=== PATIENT | male | born 1955 | race Caucasian/White ===

== ENCOUNTER 2020-05-30 20:19 | Inpatient (IN) ==
[2020-05-30 20:44] VITALS: BMI 23.5
--- NOTE | 2020-05-30 20:53 | DR.GENAD ---
HPI Time Seen Time Seen by Provider: 05/30/20 20:50 PCP Primary Care Physician: NOEMI HPI Comment HPI Comment: PATIENT IS 65YR OLD MALE IN THE NURSING WITH CEREBRAL PALSY HAD CHEST XRAY DONE TODAY FOR COUGH AND SOB. CONCERN FOR FREE AIR EXPRESSED BY R ADIOLOGIST. PATIENT IN ER FOR FURTHER EVALUATION AND ABD/PELVIS CT RECOMMENDED. PATIENT IS BED BOUNG BUT ANSWERING QUESTIONS. DENIES FEVER, ABDOMINAL PAIN OR CHEST PAIN. ABDOMEN IS DISTENDED WITH INTACT BOWEL SOUNDS. NO NAUSEA OR VOMITING. NO DIARRHEA. Complaint/Symptoms Chief Complaint Doctors Comments: COUGHING SPELL AND SOB AT THE [facility] TODAY. Chief Complaint:: PATIENT HAD COUGHING EPISODE TODAY AND SHORTNESS OF BREATH - SENT OVER FOR ABNORMAL CXR; PT DENIES ANY PAIN OR COMPLAINTS Self Treatment fo Chief Complaint: 2L NC PLACED AT [facility] COVID-19 Coronavirus risk:travel/contact w/high risk person: No Has patient experienced Coronavirus symptoms: Yes Coronavirus symptoms experienced: Coughing and Shortness of Breath Nurses notes reviewed Nurses Notes Review: Yes Source History Provided: Patient and Longterm Mode of Arrival Mode of Arrival: Stretcher Timing Onset of Chief Complaint: 05/30/20 Came on: Suddenly Duration Duration: Constant Duration: Hours Severity Severity: Moderate Modifying Factors Worsens:: COUGHING Improves:: LYING STILL. Associated Signs and Symptoms Associated Signs and Symptoms: SOB, COUGH. Other History Other History: HISTORY CEREBRAL PALSY. PMH PMH Past Medical History: Yes Past Medical History: Anemia, Anxiety, Depression, GERD and Seizures Past Medical History Comment: CEREBRAL PALSY; Past Surgical History: Yes Surgical History: Ortho Surgery Family History History of Family Medical Conditions: Yes Family Medical History: Diabetes Mellitus, Cancer, [place] and Hypertension Social History Does any household member use tobacco: No Alcohol Use: None Do you use any recreational Drugs:: No Lives With: Other Travel Risk Coronavirus risk:travel/contact w/high risk person: No Has patient experienced Coronavirus symptoms: Yes Coronavirus symptoms experienced: Coughing and Shortness of Breath Infectious screening Have you traveled outside the country in the last 6 months?: No Isolation: Droplet ROS Review of Systems Constitutional: See HPI, Fever, Weakness and Fatigue Eyes: No Symptoms Reported, See HPI and Other (MACULAR DEGERATION.) ENTM: See HPI, Nose Discharge and Nose Congestion; negative Ear Pain and Throat Pain Respiratoy: See HPI, Moist Cough and Short of Breath; negative Wheezing Cardiovascular: No Symptoms Reported, See HPI, Chest Pain (TIGHTNESS.) and Edema; negative Palpitations Gastrointestinal/Abdominal: See HPI, Abdominal Pain (ABDOMINAL DISTENSION.) and Constipation; negative Diarrhea, Nausea and Vomiting Genitourinary: No Symptoms Reported and See HPI; negative Hematuria Neurological: No Symptoms Reported, See HPI, Pre-existing Deficit (CERERAL PALSY.), Weakness and Problems Walking Musculoskeletal: No Symptoms Reported, See HPI, Back Pain and Muscle Pain Integumentary: See HPI and Change in Color; negative Rash Hematologic/Lymphatic: See HPI and Easy Bruising; negative Swollen Glands Endocrine: No Symptoms Reported and See HPI; negative Decreased Appetite Psychiatric: See HPI and Depression All Other Systems: Reviewed and Negative PE Vital Signs Vitals: Temperature 97.8 F Pulse Rate 89 Respiratory Rate 34 Blood Pressure [Right Arm] 120/80 Blood Pressure [Left Arm] 119/54 Blood Pressure 158/70 O2 Sat by Pulse Oximetry 100 General Limitations: Other (CEREBRAL PALSY.) General Appearance: Alert and In Distress (ON EXERTION.) Eyes Eye exam: Other (RIGHT EYE); negative Scleral Icterus and Conjunctival Injection ENT ENT Exam: Normal Exam, Normal Oropharynx, Normal External Ear Exam and TM's Normal Bilaterally External Ear Exam: Normal External Inspection; negative Mastoid Tenderness TM/Canal Exam: Bilateral: Normal Nose Exam: Normal Nose Exam; negative Sinus Tenderness Mouth Exam: Normal Inspection; negative Lip Swelling and Tongue Swelling Throat Exam: Normal Inspection, Tonsillar Erythema and Tonsillomegaly Neck Neck Exam: Normal Inspection; negative Trachea Midline and Tenderness Chest Chest Inspection: Normal Inspection and Symmetric Chest Wall Rise Respiratory Respiratory Exam: Normal Lung Sounds Bilat and Respiratory Distress; negative Accessory Muscle Use and Chest Wall Tenderness Respiratory Exam: Bilateral: Rhonchi Cardiovascular Cardiovascular Exam: Regular Rate, Normal Rhythm, Normal Heart Sounds, Systolic Murmur and Diastolic Murmur Abdominal Exam Abdominal Exam: Normal Inspection, Normal Bowel Sounds, Soft and Tenderness Abdominal Tenderness: Diffuse and Mild Extremities Extremities Exam: Normal Inspection and Edema; negative Calf Tenderness Back Back Exam: Normal Inspection and Other (CEREBRAL PALSY WITH PARALYSIS.) Neurologic Neurological Exam: Alert, Oriented X3 and Motor Sensory Deficit (CEREBRAL PALSY.) Psychiatric Psychiatric Exam: Normal Affect and Normal Mood Skin Skin Exam: Dry MDM Additional Information Additional Information Obtained From: Old Records Differential Diagnosis Differential Diagnosis: PNEUMONIA, BRONCHITIS, UTI, BOWEL OBST, BOWEL DISTENSION, BOWEL PERFORATION COURSE Treatment Treatment: SEE ORDERS. ZOSYN 3.375MG IVPB IN ER AND NS 50CC/HR IN ER. Consultation Consultation Comments: DISCUSSED PATIENT WITH DR. HUNTER. HE WILL ADMIT PATIENT. Education/Counseling Education/Counseling: Patient Educated On: Diagnosis ROR Labs Reviewed Laboratory Results Reviewed?: Yes Result Diagrams: 05/30/20 22:06 05/30/20 22:06 Laboratory: WBC 7.8 X10^3/uL (3.6-10.0) 05/30/20 22:06 RBC 4.00 X10^6/uL (4.7-6.0) L 05/30/20 22:06 Hgb 11.2 g/dL (13.5-18.0) L 05/30/20 22:06 Hct 33.1 % (42.0-54.0) L 05/30/20 22:06 MCV 82.7 fL (80.0-100.0) 05/30/20 22:06 MCH 28.0 pg (27.0-34.0) 05/30/20 22:06 MCHC 33.8 g/dL (33.0-35.0) 05/30/20 22:06 RDW 15.3 % (11.6-16.5) 05/30/20 22:06 Plt Count 181 X10^3/uL (150.0-450.0) 05/30/20 22:06 MPV 8.2 fL (7.4-11.0) 05/30/20 22:06 Neut % (Auto) 65.7 % (42.0-75.0) 05/30/20 22:06 Lymph % (Auto) 21.6 % (21.0-51.0) 05/30/20 22:06 [facility] % (Auto) 8.6 % (0.0-13.0) 05/30/20 22:06 Eos % (Auto) 3.8 % (0.9-2.9) H 05/30/20 22:06 Baso % (Auto) 0.3 % (0.2-1.0) 05/30/20 22:06 Neut # (Auto) 5.1 x10^3/uL (2.2-4.8) H 05/30/20 22:06 Lymph # (Auto) 1.7 X10^3/uL (1.3-2.9) 05/30/20 22:06 [facility] # (Auto) 0.7 x10^3/uL (0.3-0.8) 05/30/20 22:06 Eos # (Auto) 0.3 x10^3/uL (0.0-0.2) H 05/30/20 22:06 Baso # (Auto) 0.0 X10^3/uL (0.0-0.1) 05/30/20 22:06 Absolute Nucleated RBC 0.0 /100WBC 05/30/20 22:06 Sodium 138 mmol/L (136-145) 05/30/20 22:06 Corrected Sodium TNP 05/30/20 22:06 Potassium 3.7 mmol/L (3.5-5.1) 05/30/20 22:06 Chloride 101 mmol/L (98-107) 05/30/20 22:06 Carbon Dioxide 33.9 mmol/L (21-32) H 05/30/20 22:06 BUN 18 mg/dL (7-18) 05/30/20 22:06 Creatinine 0.61 mg/dL (0.70-1.30) L 05/30/20 22:06 Est GFR (MDRD) Af Amer > 60 (>60) 05/30/20 22:06 Est GFR (MDRD) Non-Af > 60 (>60) 05/30/20 22:06 Glucose 106 mg/dL (65-99) H 05/30/20 22:06 Calcium 8.5 mg/dL (8.5-10.1) 05/30/20 22:06 Corrected Calcium 9.4 mg/dL (8.5-10.1) 05/30/20 22:06 Total Bilirubin 0.20 mg/dL (0.2-1.0) 05/30/20 22:06 AST 12 Units/L (15-37) L 05/30/20 22:06 ALT 15 Units/L (12-78) 05/30/20 22:06 Alkaline Phosphatase 88 Units/L (46-116) 05/30/20 22:06 Total Protein 6.6 g/dL (6.4-8.2) 05/30/20 22:06 Albumin 2.9 g/dL (3.4-5.0) L 05/30/20 22:06 Globulin 3.7 g/dL (2.5-4.5) 05/30/20 22:06 Albumin/Globulin Ratio 0.8 Ratio (1.1-2.1) L 05/30/20 22:06 Amylase 86 Units/L (25-115) 05/30/20 22:06 Lipase 214 Units/L (73-393) 05/30/20 22:06 XRAY XRAY Interpreted by: Radiologist (REPORT NOTED AND DISCUSSED WITH PATIENT.) and Self Opioid Opioid Risk Tool Age (Say box if 16-45): No History of Preadolescent Sexual Abuse: No Total: 0 Total Score Risk Category: Low Risk Copyright: [facility] predicting aberrant behaviors Diagnosis Discharge Problem: SOB (shortness of breath), Large hiatal hernia Pneumonia Qualifiers: Pneumonia type: due to unspecified organism Laterality: bilateral Lung location: lower lobe of lung Qualified Code(s): J18.9 - Pneumonia, unspecified organism Instructions Forms: Precautions for COVID19 Patient Portal Social Distancing
--- NOTE | 2020-05-30 21:20 | CT ---
HISTORYPOSSIBLE BOWEL PERFORATION- ABN CXR 05/30STUDYABDOMEN/PELVIS W/O CONCOMPARISONChest radiograph 05/30/2020TECHNIQUEMultiple axial images of the abdomen and pelvis were obtained from the lung bases to the pubic symphysis without IV contrast. Coronal and sagittal reformats obtained. Dose reduction techniques including Automated Exposure Control (AEC) and adjustment of mA and kV were utilized.FINDINGSLack of intravenous contrast compromises evaluation of solid organs and vasculature.Thoracic: Large hiatal hernia containing the entire stomach, which is moderately distended with air-fluid level. Left basilar atelectasis versus consolidation.Hepatobiliary: Multiple low-density lesions of the right hepatic lobe, too small to be characterized. The gallbladder is unremarkable.Pancreas: No abnormality identified in the pancreas.Spleen: No abnormality identified in the spleen.Adrenals: No abnormality identified in either adrenal glandGenitourinary: No parenchymal abnormality identified in either kidney. No hydronephrosis or nephrolithiasis. Evaluation of the bladder is limited, but no obvious bladder abnormality is present.Gastrointestinal: Significant distention of the rectosigmoid colon with large stool burden throughout. No convincing colonic wall thickening or pericolonic inflammation. No dilated small bowel loops. The appendix is not visualized. No right lower quadrant inflammatory changes..Vascular/Lymphatics: No enlarged lymph nodes by CT size criteria. Abdominal aorta is normal in caliber. Minimal atherosclerotic calcification.Peritoneum/Other: [No extraluminal air.] [No extraluminal fluid. ]MSK/Body Wall: Bones appear osteopenic. Subcentimeter sclerotic foci of the pelvis, too small to be characterized and are indeterminate. Levoscoliosis of the spine with multilevel spondylosis. Moderate joint space loss and degenerative changes of the bilateral hipsIMPRESSIONNo free air identified. Findings on the chest radiograph corresponding to air-filled right hepatic flexure interposition the liver. Significant stool retention may be correlated clinically for constipation.Large hiatal hernia containing the entire stomach, which is moderately distended containing air-fluid level, such that a mild degree of obstruction cannot be entirely excluded.Left basilar atelectasis versus consolidation.Indeterminate low-density right hepatic lobe lesions.Indeterminate sclerotic foci of the pelvis.Electronically signed by: Sarahi Matt (May 30, 2020 21:20:19)
[2020-05-30] MEDS ORDERED: ZOSYN VIAL 3.375 GRAMS 3.375 G in NS 100 ML IV + SPIKE MINIBAG* 100 ML IV ONE (21:57)
[2020-05-30] MEDS ORDERED: PROTONIX INJ 40 MG VIAL IVP ONE (21:58)
[2020-05-30] MEDS ORDERED: ZOSYN VIAL 3.375 GRAMS IV ONE (21:59)
[2020-05-30] MEDS ORDERED: NS 100 ML IV + SPIKE MINIBAG* 100 ML IV ONE (21:59)
[2020-05-30] MEDS ORDERED: NS 1000 ML 1,000 ML ONE (21:59)
[2020-05-30] MEDS: NS 1000 ML 1,000 ML IV SCH (22:08)
[2020-05-30] MEDS ORDERED: PROTONIX INJ 40 MG VIAL ONE (22:09)
[2020-05-30 22:16] LABS: BASOPHILS % (AUTO) 0.3 % (0.2-1.0); EOSINOPHILS # (AUTO) 0.3 x10^3/uL (0.0-0.2); EOSINOPHILS % (AUTO) 3.8 % (0.9-2.9); HEMATOCRIT 33.1 % (42.0-54.0); HEMOGLOBIN 11.2 g/dL (13.5-18.0); LYMPHOCYTES # (AUTO) 1.7 X10^3/uL (1.3-2.9); LYMPHOCYTES % (AUTO) 21.6 % (21.0-51.0); MEAN CORPUSCULAR HGB CONC 33.8 g/dL (33.0-35.0); MEAN CORPUSCULAR VOLUME 82.7 fL (80.0-100.0); MEAN PLATELET VOLUME 8.2 fL (7.4-11.0); MONOCYTES # (AUTO) 0.7 x10^3/uL (0.3-0.8); MONOCYTES % (AUTO) 8.6 % (0.0-13.0); NEUTROPHILS # (AUTO) 5.1 x10^3/uL (2.2-4.8); NEUTROPHILS % (AUTO) 65.7 % (42.0-75.0); PLATELET COUNT 181 X10^3/uL (150.0-450.0); RED CELL DISTRIBUTION WIDTH 15.3 % (11.6-16.5); WHITE BLOOD COUNT 7.8 X10^3/uL (3.6-10.0)
[2020-05-30 22:25] LABS: ALANINE AMINOTRANSFERASE 15 Units/L (12-78); ALBUMIN 2.9 g/dL (3.4-5.0); ALKALINE PHOSPHATASE 88 Units/L (46-116); AMYLASE 86 Units/L (25-115); ASPARTATE AMINO TRANSFERASE 12 Units/L (15-37); BLOOD UREA NITROGEN 18 mg/dL (7-18); CALCIUM 8.5 mg/dL (8.5-10.1); CARBON DIOXIDE 33.9 mmol/L (21-32); CHLORIDE 101 mmol/L (98-107); COR CA(FOR HYPOALB) 9.4 mg/dL (8.5-10.1); CREATININE 0.61 mg/dL (0.70-1.30); LIPASE 214 Units/L (73-393); SODIUM 138 mmol/L (136-145); TOTAL PROTEIN 6.6 g/dL (6.4-8.2); eGFR NON BLACK RACES > 60 (>60)
[2020-05-31] MEDS ORDERED: TUSSIONEX PENNKINETIC SUSP PO PRN (00:01)
[2020-05-31] MEDS: ZOSYN VIAL 3.375 GRAMS 3.375 G in NS 100 ML IV + SPIKE MINIBAG* 100 ML IV SCH ×4 (00:52→21:57)
[2020-05-31] MEDS ORDERED: PHARMACY CONSULT LTC MEDICATIONS XX SCH (02:00)
[2020-05-31 02:26] LABS: BILIRUBIN,URINE NEGATIVE (NEGATIVE); BLOOD/HEMOGLOBIN,URINE NEGATIVE (NEGATIVE); GLUCOSE, URINE NEGATIVE (NEGATIVE); KETONES,URINE NEGATIVE (NEGATIVE); LEUKOCYTE ESTERASE ,URINE NEGATIVE (NEGATIVE); NITRITES,URINE NEGATIVE (NEGATIVE); PROTEIN,URINE NEGATIVE (NEGATIVE); UROBILINOGEN,URINE NORMAL (NORMAL)
[2020-05-31 02:27] LABS: APPEARANCE,URINE CLEAR (CLEAR); COLOR,URINE YELLOW (YELLOW)
[2020-05-31 05:13] LABS: BASOPHILS % (AUTO) 0.2 % (0.2-1.0); EOSINOPHILS # (AUTO) 0.3 x10^3/uL (0.0-0.2); EOSINOPHILS % (AUTO) 4.6 % (0.9-2.9); HEMATOCRIT 31.2 % (42.0-54.0); HEMOGLOBIN 10.7 g/dL (13.5-18.0); LYMPHOCYTES # (AUTO) 1.5 X10^3/uL (1.3-2.9); LYMPHOCYTES % (AUTO) 23.1 % (21.0-51.0); MEAN CORPUSCULAR HEMOGLOBIN 28.4 pg (27.0-34.0); MEAN CORPUSCULAR HGB CONC 34.2 g/dL (33.0-35.0); MEAN CORPUSCULAR VOLUME 82.9 fL (80.0-100.0); MEAN PLATELET VOLUME 8.6 fL (7.4-11.0); MONOCYTES # (AUTO) 0.7 x10^3/uL (0.3-0.8); MONOCYTES % (AUTO) 10.9 % (0.0-13.0); NEUTROPHILS # (AUTO) 4.1 x10^3/uL (2.2-4.8); NEUTROPHILS % (AUTO) 61.2 % (42.0-75.0); PLATELET COUNT 168 X10^3/uL (150.0-450.0); RED BLOOD COUNT 3.76 X10^6/uL (4.7-6.0); RED CELL DISTRIBUTION WIDTH 15.4 % (11.6-16.5); WHITE BLOOD COUNT 6.6 X10^3/uL (3.6-10.0)
[2020-05-31] MEDS ORDERED: ZOSYN VIAL 3.375 GRAMS IV ONE (05:20)
[2020-05-31 05:21] LABS: ALANINE AMINOTRANSFERASE 12 Units/L (12-78); ALBUMIN 2.7 g/dL (3.4-5.0); ALKALINE PHOSPHATASE 81 Units/L (46-116); ASPARTATE AMINO TRANSFERASE 14 Units/L (15-37); BLOOD UREA NITROGEN 16 mg/dL (7-18); CALCIUM 8.5 mg/dL (8.5-10.1); CARBON DIOXIDE 31.9 mmol/L (21-32); CHLORIDE 103 mmol/L (98-107); COR CA(FOR HYPOALB) 9.5 mg/dL (8.5-10.1); CREATININE 0.51 mg/dL (0.70-1.30); SODIUM 139 mmol/L (136-145); TOTAL PROTEIN 6.2 g/dL (6.4-8.2); eGFR NON BLACK RACES > 60 (>60)
[2020-05-31] MEDS ORDERED: NS 100 ML IV + SPIKE MINIBAG* 100 ML IV ONE (05:21)
[2020-05-31] MEDS: XANAX PO SCH ×3 (05:40→21:57)
[2020-05-31] MEDS ORDERED: CALCIUM CARBONATE VITAMIN D3 PO SCH (09:00)
[2020-05-31] MEDS: COLACE CAP 100 MG PO SCH (09:52)
[2020-05-31] MEDS: FLOMAX PO SCH (09:54)
[2020-05-31] MEDS: ROBITUSSIN DM PO SCH ×4 (09:55→20:59)
[2020-05-31] MEDS: FOLIC ACID TAB 1 MG PO SCH (09:55)
[2020-05-31] MEDS: WELLBUTRIN XL 150 MG (DAILY) PO SCH (09:56)
[2020-05-31] MEDS: VSL#3 PO SCH (09:56)
[2020-05-31] MEDS: ZyPREXA TAB 5 MG PO SCH (09:56)
[2020-05-31] MEDS: ZITHROMAX INJ 500 MG VIAL 500 MG in D5W 250 ML IV 250 ML IV SCH (10:27)
[2020-05-31] MEDS: NS 1000 ML 1,000 ML IV SCH (12:00)
--- NOTE | 2020-05-31 12:46 | RAD ---
HISTORYAbdominal distensionSTUDYKUBCOMPARSCCI [facility]bdomen CT 05/30/2020FINDINGSThere is significant gaseous dilatation of small and large bowel. There is no evidence for pneumatosis, ascites or mass. Visceral outlines are obscured. There is fecal distention of the distal colon and rectosigmoid. Large hiatal hernia is present.IMPRESSIONIntestinal distention most likely related to ileus and no definite obstruction. Suspect constipation. Large hiatal hernia.Electronically signed by: TIM LEE (May 31, 2020 12:46:49)
[2020-05-31] MEDS ORDERED: ZyPREXA TAB 5 MG PO SCH (21:00)
[2020-05-31] MEDS ORDERED: PULMICORT NEB TX 0.5 MG NEB SCH (21:00)
[2020-05-31] MEDS: DUONEB 0.5 MG/3 MG (3 mL) NEB SCH (21:57)
[2020-05-31] MEDS: OSCAL+D or CALTRATE+D PO SCH (21:57)
[2020-06-01] MEDS: XANAX PO SCH ×2 (05:34→13:45)
[2020-06-01] MEDS: ZOSYN VIAL 3.375 GRAMS 3.375 G in NS 100 ML IV + SPIKE MINIBAG* 100 ML IV SCH (05:34)
[2020-06-01 05:41] LABS: BASOPHILS % (AUTO) 0.6 % (0.2-1.0); EOSINOPHILS # (AUTO) 0.2 x10^3/uL (0.0-0.2); EOSINOPHILS % (AUTO) 4.6 % (0.9-2.9); HEMATOCRIT 32.6 % (42.0-54.0); HEMOGLOBIN 11.1 g/dL (13.5-18.0); LYMPHOCYTES # (AUTO) 1.1 X10^3/uL (1.3-2.9); LYMPHOCYTES % (AUTO) 20.9 % (21.0-51.0); MEAN CORPUSCULAR HEMOGLOBIN 28.2 pg (27.0-34.0); MEAN CORPUSCULAR HGB CONC 34.1 g/dL (33.0-35.0); MEAN CORPUSCULAR VOLUME 82.6 fL (80.0-100.0); MEAN PLATELET VOLUME 8.5 fL (7.4-11.0); MONOCYTES # (AUTO) 0.5 x10^3/uL (0.3-0.8); MONOCYTES % (AUTO) 10.6 % (0.0-13.0); NEUTROPHILS # (AUTO) 3.2 x10^3/uL (2.2-4.8); NEUTROPHILS % (AUTO) 63.3 % (42.0-75.0); PLATELET COUNT 168 X10^3/uL (150.0-450.0); RED BLOOD COUNT 3.95 X10^6/uL (4.7-6.0); RED CELL DISTRIBUTION WIDTH 15.1 % (11.6-16.5); WHITE BLOOD COUNT 5.1 X10^3/uL (3.6-10.0)
[2020-06-01 05:54] LABS: ALANINE AMINOTRANSFERASE 15 Units/L (12-78); ALBUMIN 2.7 g/dL (3.4-5.0); ALKALINE PHOSPHATASE 90 Units/L (46-116); ASPARTATE AMINO TRANSFERASE 16 Units/L (15-37); BLOOD UREA NITROGEN 9 mg/dL (7-18); CALCIUM 8.7 mg/dL (8.5-10.1); CARBON DIOXIDE 31.1 mmol/L (21-32); CHLORIDE 104 mmol/L (98-107); COR CA(FOR HYPOALB) 9.7 mg/dL (8.5-10.1); CREATININE 0.45 mg/dL (0.70-1.30); SODIUM 141 mmol/L (136-145); TOTAL PROTEIN 6.4 g/dL (6.4-8.2); eGFR NON BLACK RACES > 60 (>60)
[2020-06-01] MEDS: NS 1000 ML 1,000 ML IV SCH (08:32)
[2020-06-01] MEDS: DUONEB 0.5 MG/3 MG (3 mL) NEB SCH (09:44)
[2020-06-01] MEDS: COLACE CAP 100 MG PO SCH (09:50)
[2020-06-01] MEDS: WELLBUTRIN XL 150 MG (DAILY) PO SCH (09:50)
[2020-06-01] MEDS: VSL#3 PO SCH (09:50)
[2020-06-01] MEDS: FLOMAX PO SCH (09:50)
[2020-06-01] MEDS: OSCAL+D or CALTRATE+D PO SCH (09:51)
[2020-06-01] MEDS: ZyPREXA TAB 5 MG PO SCH (09:51)
[2020-06-01] MEDS: ROBITUSSIN DM PO SCH ×2 (09:51→13:45)
[2020-06-01] MEDS: FOLIC ACID TAB 1 MG PO SCH (09:51)
[2020-06-01] MEDS: ZITHROMAX INJ 500 MG VIAL 500 MG in D5W 250 ML IV 250 ML IV SCH (09:52)
[2020-06-01 12:44] VITALS: BP 121/72
[2020-06-29] MEDS ORDERED: VITAMIN B-12 INJ IM SCH (08:00)
[2020-06-29] MEDS ORDERED: CYANOCOBALAMIN 1000 MCG IM SCH (09:00)
== END 2020-06-01 14:26 | DRG 195 ==
LOC: ER 20:20 → MED/SURG 22:24
PROVIDERS: ADMIT Internal Medicine; ATTEND Internal Medicine
DX: K44.9 Diaphragmatic hernia without obstruction or gangrene; R06.02 Shortness of breath; K21.9 Gastro-esophageal reflux disease without esophagitis; Z20.828 Contact with and (suspected) exposure to other viral communicable diseases; J18.8 Other pneumonia, unspecified organism; K76.89 Other specified diseases of liver

== ENCOUNTER 2021-01-13 17:59 | Observation (INO) ==
[2021-01-13 18:10] VITALS: BMI 24.9
--- NOTE | 2021-01-13 18:49 | DR.N/VMALE ---
HPI Time Seen Time Seen by Provider: 01/13/21 18:47 Primary Care Physician Primary Care Physician: DAEL HPI Comment HPI Comment: PATIENT Complaints Chief Complaint Doctors Comments: VOMITING BROWN LIQUID. Chief Complaint:: VOMITING UP BROWN LIQUID. SMELLS LIKE BM. PT WAS SEEN LAST NIGHT IN ER AND ALSO AT DR. DUMONT OFFICE TODAY. WAS PRESCRIBED MIRALAX AND PEPCID BUT HAS NOT RECEIVED. DID RECEIVE DULCOLOX SUPP WITH SOME BM. PT STATES FEELS, "FULL OF AIR AND IS BELCHING A LOT." COVID-19 Coronavirus risk:travel/contact w/high risk person: No Has patient experienced Coronavirus symptoms: No Reviewed Nurses Notes Reviewed: Yes Source History Provided: Patient and [facility] Mode of Arrival Mode of Arrival: Stretcher Timing Onset of Chief Complaint: 01/13/21 PMH PMH Past Medical History: Yes Past Medical History: Anemia, Anxiety, Depression, GERD and Seizures Past Surgical History: Yes Surgical History: Ortho Surgery and Other Family History History of Family Medical Conditions: Yes Family Medical History: Hypertension Social History Alcohol Use: None Do you use any recreational Drugs:: No Lives With: Other Lives Where: [facility] Travel Risk Coronavirus risk:travel/contact w/high risk person: No Has patient experienced Coronavirus symptoms: No Infectious screening In the last 2 months have you had wt loss of >10#?: NO Have you had fever, night sweats or hemotysis?: No Have you traveled outside the country in the last 6 months?: No Isolation: Standard ROS Review of Systems Constitutional: No Symptoms Reported and See HPI Eyes: No Symptoms Reported and See HPI ENTM: No Symptoms Reported and See HPI Respiratoy: No Symptoms Reported and See HPI Cardiovascular: No Symptoms Reported and See HPI Gastrointestinal/Abdominal: No Symptoms Reported and See HPI Genitourinary: No Symptoms Reported and See HPI Neurological: No Symptoms Reported and See HPI Musculoskeletal: No Symptoms Reported and See HPI Integumentary: No Symptoms Reported and See HPI Hematologic/Lymphatic: No Symptoms Reported Endocrine: No Symptoms Reported Psychiatric: No Symptoms Reported All Other Systems: Reviewed and Negative PE Vital Signs Vitals: Temperature 97.8 F Pulse Rate 128 Respiratory Rate 18 Blood Pressure [Right Arm] 136/94 Blood Pressure 185/86 O2 Sat by Pulse Oximetry 87 General Limitations: No Limitations General Appearance: Alert and In No Apparent Distress Head Head Exam: Normal Inspection Eyes Eye exam: Normal Appearance ENT ENT Exam: Normal Exam Neck Neck Exam: Normal Inspection Chest Chest Inspection: Normal Inspection Respiratory Respiratory Exam: Normal Lung Sounds Bilat Respiratory Exam: Bilateral: Clear to Auscultation Cardiovascular Cardiovascular Exam: Regular Rate and Normal Rhythm Abdominal Exam Abdominal Exam: Normal Inspection, Normal Bowel Sounds and Soft Rectal Rectal Exam: Deferred Exam: Male: Deferred Extremities Extremities Exam: Normal Inspection Back Back Exam: Normal Inspection Neurologic Neurological Exam: Alert and Oriented X3 Psychiatric Psychiatric Exam: Normal Affect and Normal Mood Skin Skin Exam: Warm, Dry, Intact and Normal Color ROR Labs Reviewed Result Diagrams: 01/14/21 03:46 01/14/21 03:46 Laboratory: WBC 9.1 X10^3/uL (3.6-10.0) 01/13/21 19:40 RBC 3.95 X10^6/uL (4.7-6.0) L 01/13/21 19:40 Hgb 11.4 g/dL (13.5-18.0) L 01/13/21 19:40 Hct 33.4 % (42.0-54.0) L 01/13/21 19:40 MCV 84.6 fL (80.0-100.0) 01/13/21 19:40 MCH 28.9 pg (27.0-34.0) 01/13/21 19:40 MCHC 34.2 g/dL (33.0-35.0) 01/13/21 19:40 RDW 14.3 % (11.6-16.5) 01/13/21 19:40 Plt Count 220 X10^3/uL (150.0-450.0) 01/13/21 19:40 MPV 9.1 fL (7.4-11.0) 01/13/21 19:40 Neut % (Auto) 88.1 % (42.0-75.0) H 01/13/21 19:40 Lymph % (Auto) 4.9 % (21.0-51.0) L 01/13/21 19:40 [place] % (Auto) 4.2 % (0.0-13.0) 01/13/21 19:40 Eos % (Auto) 0.9 % (0.9-2.9) 01/13/21 19:40 Baso % (Auto) 1.9 % (0.2-1.0) H 01/13/21 19:40 Neut # (Auto) 8.1 x10^3/uL (2.2-4.8) H 01/13/21 19:40 Lymph # (Auto) 0.4 X10^3/uL (1.3-2.9) L 01/13/21 19:40 [place] # (Auto) 0.4 x10^3/uL (0.3-0.8) 01/13/21 19:40 Eos # (Auto) 0.1 x10^3/uL (0.0-0.2) 01/13/21 19:40 Baso # (Auto) 0.2 X10^3/uL (0.0-0.1) H 01/13/21 19:40 Absolute Nucleated RBC 0.0 /100WBC 01/13/21 19:40 Sodium 143 mmol/L (136-145) 01/13/21 19:40 Corrected Sodium 144 mmol/L (136-145) 01/13/21 19:40 Potassium 3.4 mmol/L (3.5-5.1) L 01/13/21 19:40 Chloride 103 mmol/L (98-107) 01/13/21 19:40 Carbon Dioxide 32.9 mmol/L (21-32) H 01/13/21 19:40 BUN 16 mg/dL (7-18) 01/13/21 19:40 Creatinine 0.50 mg/dL (0.70-1.30) L 01/13/21 19:40 Est GFR (MDRD) Af Amer > 60 (>60) 01/13/21 19:40 Est GFR (MDRD) Non-Af > 60 (>60) 01/13/21 19:40 Glucose 151 mg/dL (65-99) H 01/13/21 19:40 Calcium 8.8 mg/dL (8.5-10.1) 01/13/21 19:40 Corrected Calcium 9.5 mg/dL (8.5-10.1) 01/13/21 19:40 Total Bilirubin 0.40 mg/dL (0.2-1.0) 01/13/21 19:40 AST 20 Units/L (15-37) 01/13/21 19:40 ALT 19 Units/L (12-78) 01/13/21 19:40 Alkaline Phosphatase 78 Units/L (46-116) 01/13/21 19:40 Total Protein 6.2 g/dL (6.4-8.2) L 01/13/21 19:40 Albumin 3.1 g/dL (3.4-5.0) L 01/13/21 19:40 Globulin 3.1 g/dL (2.5-4.5) 01/13/21 19:40 Albumin/Globulin Ratio 1.0 Ratio (1.1-2.1) L 01/13/21 19:40 Amylase 37 Units/L (25-115) 01/13/21 19:40 Lipase 56 Units/L (73-393) L 01/13/21 19:40 Specimen Type Clean catch urine 01/14/21 00:03 Urine Color Sarah (YELLOW) 01/14/21 00:03 Urine Appearance Clear (CLEAR) 01/14/21 00:03 Urine pH 7.0 (5.0 - 8.0) 01/14/21 00:03 Ur Specific [place] 1.015 (1.000-1.030) 01/14/21 00:03 Urine Protein 2+ (NEGATIVE) 01/14/21 00:03 Urine Glucose (UA) Negative (NEGATIVE) 01/14/21 00:03 Urine Ketones 2+ (NEGATIVE) 01/14/21 00:03 Urine Occult Blood 3+ (NEGATIVE) 01/14/21 00:03 Urine Nitrite Negative (NEGATIVE) 01/14/21 00:03 Urine Bilirubin 1+ (NEGATIVE) 01/14/21 00:03 Urine Urobilinogen 1+ (NORMAL) 01/14/21 00:03 Ur Leukocyte Esterase 1+ (NEGATIVE) 01/14/21 00:03 Urine RBC 0-2 /HPF (0-3) 01/14/21 00:03 Urine WBC 0-2 /HPF (0-5) 01/14/21 00:03 Ur Squamous Epith Cells Rare /HPF (NEGATIVE) 01/14/21 00:03 Urine Bacteria 1+ /HPF (NEGATIVE) 01/14/21 00:03 Ur Culture Indicated? No/not indicated 01/14/21 00:03 Opioid Opioid Risk Tool Age (Say box if 16-45): No History of Preadolescent Sexual Abuse: No Total: 0 Total Score Risk Category: Low Risk Copyright: [facility] predicting aberrant behaviors Instructions Forms: Precautions for COVID19 Patient Portal Social Distancing
[2021-01-13 20:00] LABS: BASOPHILS # (AUTO) 0.2 X10^3/uL (0.0-0.1); BASOPHILS % (AUTO) 1.9 % (0.2-1.0); EOSINOPHILS # (AUTO) 0.1 x10^3/uL (0.0-0.2); EOSINOPHILS % (AUTO) 0.9 % (0.9-2.9); HEMATOCRIT 33.4 % (42.0-54.0); HEMOGLOBIN 11.4 g/dL (13.5-18.0); LYMPHOCYTES # (AUTO) 0.4 X10^3/uL (1.3-2.9); LYMPHOCYTES % (AUTO) 4.9 % (21.0-51.0); MEAN CORPUSCULAR HEMOGLOBIN 28.9 pg (27.0-34.0); MEAN CORPUSCULAR HGB CONC 34.2 g/dL (33.0-35.0); MEAN CORPUSCULAR VOLUME 84.6 fL (80.0-100.0); MEAN PLATELET VOLUME 9.1 fL (7.4-11.0); MONOCYTES # (AUTO) 0.4 x10^3/uL (0.3-0.8); MONOCYTES % (AUTO) 4.2 % (0.0-13.0); NEUTROPHILS # (AUTO) 8.1 x10^3/uL (2.2-4.8); NEUTROPHILS % (AUTO) 88.1 % (42.0-75.0); PLATELET COUNT 220 X10^3/uL (150.0-450.0); RED BLOOD COUNT 3.95 X10^6/uL (4.7-6.0); RED CELL DISTRIBUTION WIDTH 14.3 % (11.6-16.5); WHITE BLOOD COUNT 9.1 X10^3/uL (3.6-10.0)
[2021-01-13 20:09] LABS: ALANINE AMINOTRANSFERASE 19 Units/L (12-78); ALBUMIN 3.1 g/dL (3.4-5.0); ALKALINE PHOSPHATASE 78 Units/L (46-116); AMYLASE 37 Units/L (25-115); ASPARTATE AMINO TRANSFERASE 20 Units/L (15-37); BLOOD UREA NITROGEN 16 mg/dL (7-18); CALCIUM 8.8 mg/dL (8.5-10.1); CARBON DIOXIDE 32.9 mmol/L (21-32); CHLORIDE 103 mmol/L (98-107); COR CA(FOR HYPOALB) 9.5 mg/dL (8.5-10.1); COR NA(FOR HYPERGLY) 144 mmol/L (136-145); LIPASE 56 Units/L (73-393); SODIUM 143 mmol/L (136-145); TOTAL PROTEIN 6.2 g/dL (6.4-8.2); eGFR NON BLACK RACES > 60 (>60)
[2021-01-13] MEDS ORDERED: NS 1000 ML 1,000 ML ONE (22:17)
[2021-01-13] MEDS ORDERED: PEPCID 20 MG IV PREMIX* 20 MG/50 ML BAG IV ONE (22:18)
[2021-01-13] MEDS ORDERED: PROTONIX INJ 40 MG VIAL ONE (22:35)
[2021-01-13] MEDS ORDERED: NS 100 ML IV 100 ML IV ONE (22:35)
[2021-01-13] MEDS: PROTONIX INJ 40 MG VIAL 80 MG in NS 100 ML IV 80 ML IV SCH (22:47)
[2021-01-13] MEDS ORDERED: NS 1000 ML 1,000 ML IV SCH (23:00)
[2021-01-14 00:28] LABS: BILIRUBIN,URINE 1+ (NEGATIVE); BLOOD/HEMOGLOBIN,URINE 3+ (NEGATIVE); GLUCOSE, URINE NEGATIVE (NEGATIVE); KETONES,URINE 2+ (NEGATIVE); LEUKOCYTE ESTERASE ,URINE 1+ (NEGATIVE); NITRITES,URINE NEGATIVE (NEGATIVE); PROTEIN,URINE 2+ (NEGATIVE); UROBILINOGEN,URINE 1+ (NORMAL)
[2021-01-14 00:36] LABS: APPEARANCE,URINE CLEAR (CLEAR); BACTERIA,URINE 1+ /HPF (NEGATIVE); COLOR,URINE AMBER (YELLOW); RBC,URINE 0-2 /HPF (0-3); SQUAMOUS EPITHELIAL CELL,UR RARE /HPF (NEGATIVE)
[2021-01-14] MEDS ORDERED: ZOFRAN INJ 4 MG VIAL IVP PRN (02:23)
[2021-01-14] MEDS ORDERED: PHARMACY CONSULT LTC MEDICATIONS XX SCH (03:00)
[2021-01-14] MEDS ORDERED: PROTONIX INJ 40 MG VIAL ONE (03:43)
[2021-01-14] MEDS ORDERED: NS 100 ML IV 100 ML IV ONE (03:43)
[2021-01-14] MEDS: PROTONIX INJ 40 MG VIAL 80 MG in NS 100 ML IV 80 ML IV SCH ×2 (03:52→08:44)
[2021-01-14 04:00] LABS: BASOPHILS % (AUTO) 0.2 % (0.2-1.0); EOSINOPHILS # (AUTO) 0.1 x10^3/uL (0.0-0.2); EOSINOPHILS % (AUTO) 1.4 % (0.9-2.9); HEMOGLOBIN 10.3 g/dL (13.5-18.0); LYMPHOCYTES # (AUTO) 1.9 X10^3/uL (1.3-2.9); LYMPHOCYTES % (AUTO) 20.3 % (21.0-51.0); MEAN CORPUSCULAR HEMOGLOBIN 28.3 pg (27.0-34.0); MEAN CORPUSCULAR HGB CONC 33.4 g/dL (33.0-35.0); MEAN CORPUSCULAR VOLUME 84.7 fL (80.0-100.0); MONOCYTES # (AUTO) 1.1 x10^3/uL (0.3-0.8); MONOCYTES % (AUTO) 11.3 % (0.0-13.0); NEUTROPHILS # (AUTO) 6.2 x10^3/uL (2.2-4.8); NEUTROPHILS % (AUTO) 66.8 % (42.0-75.0); PLATELET COUNT 192 X10^3/uL (150.0-450.0); RED BLOOD COUNT 3.66 X10^6/uL (4.7-6.0); RED CELL DISTRIBUTION WIDTH 14.1 % (11.6-16.5); WHITE BLOOD COUNT 9.3 X10^3/uL (3.6-10.0)
[2021-01-14 04:12] LABS: ALANINE AMINOTRANSFERASE 17 Units/L (12-78); ALBUMIN 2.6 g/dL (3.4-5.0); ALKALINE PHOSPHATASE 67 Units/L (46-116); AMYLASE 31 Units/L (25-115); ASPARTATE AMINO TRANSFERASE 16 Units/L (15-37); BLOOD UREA NITROGEN 20 mg/dL (7-18); CALCIUM 7.9 mg/dL (8.5-10.1); CARBON DIOXIDE 35.3 mmol/L (21-32); CHLORIDE 105 mmol/L (98-107); LIPASE 58 Units/L (73-393); SODIUM 144 mmol/L (136-145); TOTAL PROTEIN 5.5 g/dL (6.4-8.2); eGFR NON BLACK RACES > 60 (>60)
--- NOTE | 2021-01-14 06:55 | RAD ---
HISTORYPRE-OP FOR EGDSTUDYCHEST, 1 [id number]/10/2021.TECHNIQUEAP view of the chestFINDINGSCardiac and mediastinal contours are within normal limits. Severely elevated left hemidiaphragm, similar to prior. No consolidation or segmental lung collapse. No definite pleural effusion or pneumothorax. Stable rightward deviation of the trachea at the thoracic inlet.IMPRESSIONNo significant change. Severely elevated left hemidiaphragm.Electronically signed by: Noah Tong (January 14, 2021 06:53:11)
[2021-01-14] MEDS ORDERED: PEPCID 20 MG IV PREMIX* 20 MG/50 ML BAG IV SCH ×2 (09:00)
[2021-01-14] MEDS ORDERED: DIPRIVAN VIAL 20 ML ONE (09:29)
[2021-01-14] MEDS ORDERED: NS 1000 ML 1,000 ML ONE (09:33)
[2021-01-14] MEDS ORDERED: VERSED ONE (09:43)
--- NOTE | 2021-01-14 10:10 | RAD ---
HISTORYABDOMINAL DISTENTION, LOOSE STOOLSSTUDYKUBCOMPARISONCT abdomen and pelvis from 01/12/2021.TECHNIQUESupine KUB.FINDINGSPatient is rotated. There is significantly gas distended colon with a large amount of stool in the pelvis and left lower quadrant. No evidence of small-bowel obstruction. No free air. No suspicious calcifications.IMPRESSIONSuspect fecal impaction with large stool burden in the pelvis and left lower quadrant.Electronically signed by: Noah Tong (January 14, 2021 10:09:05)
[2021-01-14] MEDS ORDERED: KLOR-CON PO ONE (12:10)
[2021-01-14] MEDS ORDERED: KLOR-CON ONE (12:11)
[2021-01-14 13:03] VITALS: BP 134/84
== END 2021-01-14 13:30 ==
LOC: ER 17:59 → OBS 17:59
PROVIDERS: ADMIT Surgery; ATTEND Internal Medicine
DX: R10.84 Generalized abdominal pain; K44.9 Diaphragmatic hernia without obstruction or gangrene; R13.11 Dysphagia, oral phase; K21.00 Gastro-esophageal reflux disease with esophagitis, without bleeding; R11.2 Nausea with vomiting, unspecified; K22.8 Other specified diseases of esophagus; K92.2 Gastrointestinal hemorrhage, unspecified; K56.41 Fecal impaction

== ENCOUNTER 2021-05-20 13:47 | Observation (INO) ==
[2021-05-20 14:08] VITALS: BMI 23.9
[2021-05-20] MEDS ORDERED: CATAPRES TAB 0.1 MG PO ONE (14:21)
--- NOTE | 2021-05-20 14:38 | DR.SOBA ---
HPI Time Seen Time Seen by Provider: 05/20/21 14:17 Primary Care Physician Primary Care Physician: HPI Comment HPI Comment: A 65 y/o male brought over from [facility] because of abnormal labs., elevated BP and SOB. He reportedly had a CXR yesterday that a lobar pneumonia. The pt. himself states he is doing fine, he has no complains and doesn't know why he is here. Complaints Chief Complaint:: PT WAS SENT HERE TO BE SEEN IN ER PER [facility] W/ C/O ABNORMAL LABS, ELEVATED BP, & SOB. PT HAD CHEST XRAY DONE & IT SHOWED PNEUMONIA. COVID-19 Coronavirus risk:travel/contact w/high risk person: No Has patient experienced Coronavirus symptoms: No Reviewed Nurses Notes Reviewed: Yes Source History Provided: Residential Mode of Arrival Mode of Arrival: Stretcher Timing Onset of Chief Complaint: 05/20/21 Context PE Risk Factors:: Immobilization History of:: None Currently on:: Neither Prehospital Care:: None PMH PMH Past Medical History: Yes Past Medical History: Anemia, Anxiety, Depression, GERD and Seizures Past Surgical History: Yes Surgical History: Ortho Surgery and Other Family History History of Family Medical Conditions: Yes Family Medical History: Hypertension Social History Do you use any recreational Drugs:: No Travel Risk Coronavirus risk:travel/contact w/high risk person: No Has patient experienced Coronavirus symptoms: No Infectious screening Have you traveled outside the country in the last 6 months?: No Isolation: Standard ROS Review of Systems Constitutional: No Symptoms Reported Eyes: No Symptoms Reported ENTM: No Symptoms Reported Respiratoy: No Symptoms Reported Cardiovascular: No Symptoms Reported Gastrointestinal/Abdominal: No Symptoms Reported Genitourinary: No Symptoms Reported Neurological: No Symptoms Reported Musculoskeletal: No Symptoms Reported Integumentary: No Symptoms Reported Hematologic/Lymphatic: No Symptoms Reported Endocrine: No Symptoms Reported Psychiatric: No Symptoms Reported PE Vital Signs Vitals: Temperature 98.3 F Pulse Rate 88 Respiratory Rate 18 Blood Pressure [Right Arm] 134/84 Blood Pressure 150/63 O2 Sat by Pulse Oximetry 97 General Limitations: Physical Limitation (skeletal deformities) General Appearance: Alert and In No Apparent Distress Head Head Exam: Normal Inspection, Atraumatic and Normocephalic Eyes Eye exam: Normal Appearance and EOMI ENT ENT Exam: Normal Exam, Normal Oropharynx, Normal External Ear Exam and Mucous Membranes Moist Neck Neck Exam: Normal Inspection and Trachea Midline Chest Chest Inspection: Normal Inspection and Symmetric Chest Wall Rise Respiratory Respiratory Exam: Normal Lung Sounds Bilat Cardiovascular Cardiovascular Exam: Regular Rate, Normal Rhythm, Normal Heart Sounds, +S1 and +S2 Abdominal Exam Abdominal Exam: Normal Inspection, Normal Bowel Sounds and Soft Extremities Extremities Exam: Other (flexion deformities at wrists, elbows, hips and knees.) Back Back Exam: Normal Inspection Neurologic Neurological Exam: Alert Psychiatric Psychiatric Exam: Normal Affect and Normal Mood Skin Skin Exam: Intact and Normal Color COURSE Reevaluation 1st: Unchanged Education/Counseling Education/Counseling: Patient, Education and Counseling Educated On: Treatment, Diagnosis, Prognosis and Needs for Follow Up ROR Labs Reviewed Result Diagrams: 05/20/21 14:39 05/20/21 14:39 Laboratory: WBC 8.4 X10^3/uL (3.6-10.0) D 05/20/21 14:39 RBC 4.27 X10^6/uL (4.7-6.0) L 05/20/21 14:39 Hgb 11.4 g/dL (13.5-18.0) L 05/20/21 14:39 Hct 34.3 % (42.0-54.0) L 05/20/21 14:39 MCV 80.5 fL (80.0-100.0) 05/20/21 14:39 MCH 26.7 pg (27.0-34.0) L 05/20/21 14:39 MCHC 33.1 g/dL (33.0-35.0) 05/20/21 14:39 RDW 15.1 % (11.6-16.5) 05/20/21 14:39 Plt Count 230 X10^3/uL (150.0-450.0) 05/20/21 14:39 MPV 8.3 fL (7.4-11.0) 05/20/21 14:39 Neut % (Auto) 66.6 % (42.0-75.0) 05/20/21 14:39 Lymph % (Auto) 22.3 % (21.0-51.0) 05/20/21 14:39 [place] % (Auto) 9.0 % (0.0-13.0) 05/20/21 14:39 Eos % (Auto) 2.0 % (0.9-2.9) 05/20/21 14:39 Baso % (Auto) 0.1 % (0.2-1.0) L 05/20/21 14:39 Neut # (Auto) 5.6 x10^3/uL (2.2-4.8) H 05/20/21 14:39 Lymph # (Auto) 1.9 X10^3/uL (1.3-2.9) 05/20/21 14:39 [place] # (Auto) 0.8 x10^3/uL (0.3-0.8) 05/20/21 14:39 Eos # (Auto) 0.2 x10^3/uL (0.0-0.2) 05/20/21 14:39 Baso # (Auto) 0.0 X10^3/uL (0.0-0.1) 05/20/21 14:39 Absolute Nucleated RBC 0.0 /100WBC 05/20/21 14:39 Sodium 139 mmol/L (136-145) 05/20/21 14:39 Corrected Sodium 139 mmol/L (136-145) 05/20/21 14:39 Potassium 3.5 mmol/L (3.5-5.1) 05/20/21 14:39 Chloride 101 mmol/L (98-107) 05/20/21 14:39 Carbon Dioxide 35.2 mmol/L (21-32) H 05/20/21 14:39 BUN 19 mg/dL (7-18) H 05/20/21 14:39 Creatinine 0.63 mg/dL (0.70-1.30) L 05/20/21 14:39 Est GFR (MDRD) Af Amer > 60 (>60) 05/20/21 14:39 Est GFR (MDRD) Non-Af > 60 (>60) 05/20/21 14:39 Glucose 114 mg/dL (65-99) H 05/20/21 14:39 Lactic Acid 1.5 mmol/L (0.4-2.0) 05/20/21 14:39 Calcium 8.4 mg/dL (8.5-10.1) L 05/20/21 14:39 Corrected Calcium 9.2 mg/dL (8.5-10.1) 05/20/21 14:39 Total Bilirubin 0.30 mg/dL (0.2-1.0) 05/20/21 14:39 AST 20 Units/L (15-37) 05/20/21 14:39 ALT 15 Units/L (12-78) 05/20/21 14:39 Alkaline Phosphatase 121 Units/L (46-116) H 05/20/21 14:39 Total Protein 6.8 g/dL (6.4-8.2) 05/20/21 14:39 Albumin 3.0 g/dL (3.4-5.0) L 05/20/21 14:39 Globulin 3.8 g/dL (2.5-4.5) 05/20/21 14:39 Albumin/Globulin Ratio 0.8 Ratio (1.1-2.1) L 05/20/21 14:39 Opioid Opioid Risk Tool Age (Say box if 16-45): No History of Preadolescent Sexual Abuse: No Total: 0 Total Score Risk Category: Low Risk Copyright: Robert FIGUEREDO predicting aberrant behaviors Diagnosis Discharge Problem: Pneumonia
[2021-05-20 15:04] LABS: BASOPHILS % (AUTO) 0.1 % (0.2-1.0); EOSINOPHILS # (AUTO) 0.2 x10^3/uL (0.0-0.2); HEMATOCRIT 34.3 % (42.0-54.0); HEMOGLOBIN 11.4 g/dL (13.5-18.0); LYMPHOCYTES # (AUTO) 1.9 X10^3/uL (1.3-2.9); LYMPHOCYTES % (AUTO) 22.3 % (21.0-51.0); MEAN CORPUSCULAR HEMOGLOBIN 26.7 pg (27.0-34.0); MEAN CORPUSCULAR HGB CONC 33.1 g/dL (33.0-35.0); MEAN CORPUSCULAR VOLUME 80.5 fL (80.0-100.0); MEAN PLATELET VOLUME 8.3 fL (7.4-11.0); MONOCYTES # (AUTO) 0.8 x10^3/uL (0.3-0.8); NEUTROPHILS # (AUTO) 5.6 x10^3/uL (2.2-4.8); NEUTROPHILS % (AUTO) 66.6 % (42.0-75.0); PLATELET COUNT 230 X10^3/uL (150.0-450.0); RED BLOOD COUNT 4.27 X10^6/uL (4.7-6.0); RED CELL DISTRIBUTION WIDTH 15.1 % (11.6-16.5); WHITE BLOOD COUNT 8.4 X10^3/uL (3.6-10.0)
[2021-05-20 15:18] LABS: ALANINE AMINOTRANSFERASE 15 Units/L (12-78); ALKALINE PHOSPHATASE 121 Units/L (46-116); ASPARTATE AMINO TRANSFERASE 20 Units/L (15-37); BLOOD UREA NITROGEN 19 mg/dL (7-18); CALCIUM 8.4 mg/dL (8.5-10.1); CARBON DIOXIDE 35.2 mmol/L (21-32); CHLORIDE 101 mmol/L (98-107); COR CA(FOR HYPOALB) 9.2 mg/dL (8.5-10.1); COR NA(FOR HYPERGLY) 139 mmol/L (136-145); CREATININE 0.63 mg/dL (0.70-1.30); SODIUM 139 mmol/L (136-145); TOTAL PROTEIN 6.8 g/dL (6.4-8.2); eGFR NON BLACK RACES > 60 (>60)
[2021-05-20] MEDS ORDERED: FORTAZ or TAZICEF VIAL INJ IV ONE (16:17)
[2021-05-20] MEDS ORDERED: LEVAQUIN PREMIX IV 500 MG 500 MG/100 ML BAG IV ONE ×2 (16:17→17:24)
[2021-05-20] MEDS ORDERED: NS 100 ML IV + SPIKE MINIBAG* 100 ML IV ONE (16:36)
[2021-05-20] MEDS ORDERED: FORTAZ or TAZICEF VIAL INJ ONE (16:36)
[2021-05-20] MEDS ORDERED: NS 1/2 1000 ML IV 1,000 ML IV SCH (19:22)
[2021-05-20] MEDS ORDERED: COAL TAR EXT SCH (19:22)
[2021-05-20] MEDS ORDERED: TUSSIONEX PENNKINETIC SUSP PO PRN (19:22)
[2021-05-20] MEDS ORDERED: CARBOXYMETHYLCELLULOSE SODIUM 1% OP PRN (19:22)
[2021-05-20] MEDS ORDERED: ARTIFICIAL TEARS DROPS AFFEYE PRN (19:34)
[2021-05-20] MEDS ORDERED: [UNRECOGNIZED DRUG - OTHER] PO SCH (21:00)
[2021-05-20] MEDS: OSCAL+D or CALTRATE+D PO SCH (21:00)
[2021-05-20] MEDS: ZyPREXA TAB 5 MG PO SCH (21:00)
[2021-05-20] MEDS ORDERED: CALCIUM CARBONATE VITAMIN D3 PO SCH (21:00)
[2021-05-20] MEDS ORDERED: CALCIU PO SCH (21:00)
[2021-05-20] MEDS ORDERED: PATIENT'S HOME MEDICATION (Alprazolam 0.5 mg tablet) PO SCH (22:00)
[2021-05-20] MEDS ORDERED: NS 1/2 1000 ML IV 1,000 ML IV ONE (22:05)
[2021-05-20] MEDS: ROBITUSSIN DM PO SCH ×2 (22:07→23:01)
[2021-05-20] MEDS: PEPCID TAB 20 MG PO SCH (22:08)
[2021-05-20] MEDS: PROzac PO SCH (22:08)
[2021-05-20] MEDS: NS 1/2 1000 ML IV 1,000 ML IV SCH (22:08)
[2021-05-20] MEDS: XANAX PO SCH (22:08)
[2021-05-21 05:10] LABS: BASOPHILS % (AUTO) 0.2 % (0.2-1.0); EOSINOPHILS # (AUTO) 0.2 x10^3/uL (0.0-0.2); EOSINOPHILS % (AUTO) 2.5 % (0.9-2.9); HEMATOCRIT 31.6 % (42.0-54.0); HEMOGLOBIN 10.7 g/dL (13.5-18.0); LYMPHOCYTES # (AUTO) 1.2 X10^3/uL (1.3-2.9); LYMPHOCYTES % (AUTO) 14.2 % (21.0-51.0); MEAN CORPUSCULAR HEMOGLOBIN 26.9 pg (27.0-34.0); MEAN CORPUSCULAR HGB CONC 33.8 g/dL (33.0-35.0); MEAN CORPUSCULAR VOLUME 79.4 fL (80.0-100.0); MEAN PLATELET VOLUME 8.4 fL (7.4-11.0); MONOCYTES # (AUTO) 0.7 x10^3/uL (0.3-0.8); NEUTROPHILS # (AUTO) 6.2 x10^3/uL (2.2-4.8); NEUTROPHILS % (AUTO) 75.1 % (42.0-75.0); PLATELET COUNT 210 X10^3/uL (150.0-450.0); RED BLOOD COUNT 3.97 X10^6/uL (4.7-6.0); RED CELL DISTRIBUTION WIDTH 15.3 % (11.6-16.5); WHITE BLOOD COUNT 8.2 X10^3/uL (3.6-10.0)
[2021-05-21] MEDS: XANAX PO SCH ×3 (06:09→22:44)
[2021-05-21 06:13] LABS: BILIRUBIN,URINE NEGATIVE (NEGATIVE); BLOOD/HEMOGLOBIN,URINE 1+ (NEGATIVE); GLUCOSE, URINE NEGATIVE (NEGATIVE); KETONES,URINE NEGATIVE (NEGATIVE); LEUKOCYTE ESTERASE ,URINE NEGATIVE (NEGATIVE); NITRITES,URINE NEGATIVE (NEGATIVE); PROTEIN,URINE NEGATIVE (NEGATIVE); UROBILINOGEN,URINE NORMAL (NORMAL)
[2021-05-21 06:44] LABS: APPEARANCE,URINE CLEAR (CLEAR); BACTERIA,URINE NEGATIVE /HPF (NEGATIVE); COLOR,URINE STRAW (YELLOW); RBC,URINE 0-2 /HPF (0-3); SQUAMOUS EPITHELIAL CELL,UR RARE /HPF (NEGATIVE)
[2021-05-21 06:46] LABS: ALANINE AMINOTRANSFERASE 18 Units/L (12-78); ALBUMIN 2.8 g/dL (3.4-5.0); ALKALINE PHOSPHATASE 107 Units/L (46-116); ASPARTATE AMINO TRANSFERASE 22 Units/L (15-37); BLOOD UREA NITROGEN 12 mg/dL (7-18); CALCIUM 8.4 mg/dL (8.5-10.1); CARBON DIOXIDE 30.3 mmol/L (21-32); CHLORIDE 100 mmol/L (98-107); COR CA(FOR HYPOALB) 9.4 mg/dL (8.5-10.1); SODIUM 137 mmol/L (136-145); TOTAL PROTEIN 6.3 g/dL (6.4-8.2); eGFR NON BLACK RACES > 60 (>60)
--- NOTE | 2021-05-21 08:35 | RAD ---
HISTORYFollow-up pneumoniaSTUDYChest AP [id number] heart is within normal limits in size. The vilma are normal. Left hemidiaphragm is elevated. Mild interstitial lung changes are present bilaterally not significantly different from the prior examination considering a difference in film technique. No definite acute alveolar infiltrate is identified. No pleural effusion or pneumothorax identified. Bony thorax is unremarkable with the exception of severe glenohumeral joint degenerative joint disease on the right.IMPRESSIONNo definite alveolar pneumonia identified on this examinationMild interstitial lung changes bilaterally, stable and likely chronicChronically elevated left hemidiaphragmElectronically signed by: AG WORTHY (May 21, 2021 08:32:58)
[2021-05-21] MEDS: DUONEB 0.5 MG/3 MG (3 mL) NEB SCH ×4 (08:53→21:25)
[2021-05-21] MEDS ORDERED: WELLBUTRIN XL 150 MG (DAILY) PO SCH (09:00)
[2021-05-21] MEDS ORDERED: VSL#3 PO SCH (09:00)
[2021-05-21] MEDS ORDERED: ZyPREXA TAB 5 MG PO SCH (09:00)
[2021-05-21] MEDS ORDERED: LEVAQUIN PREMIX IV 500 MG 500 MG/100 ML BAG IV SCH (09:00)
[2021-05-21] MEDS ORDERED: FLOMAX PO SCH (09:00)
[2021-05-21] MEDS ORDERED: COLACE CAP 100 MG PO SCH (09:00)
[2021-05-21] MEDS ORDERED: FOLIC ACID TAB 1 MG PO SCH (09:00)
[2021-05-21] MEDS: OSCAL+D or CALTRATE+D PO SCH ×2 (09:22→22:43)
[2021-05-21] MEDS: PEPCID TAB 20 MG PO SCH ×2 (09:23→22:44)
[2021-05-21] MEDS: ROBITUSSIN DM PO SCH ×4 (09:23→22:45)
[2021-05-21] MEDS: PROzac PO SCH ×2 (09:23→22:44)
[2021-05-21] MEDS: NS 1/2 1000 ML IV 1,000 ML IV SCH ×3 (09:24→22:40)
[2021-05-21] MEDS ORDERED: NS 1/2 1000 ML IV 1,000 ML IV ONE ×2 (11:05→21:46)
--- NOTE | 2021-05-21 17:28 | DR.H&P ---
H&P - History & Physical for Day of: H&P Date: 05/20/21 - Chief Complaint Chief Complaint: COUGH, SOB, ELEVATED BLOOD PRESSURE - History of Present Illness History of Present Illness: IS A 65 YEAR OLD PATIENT OF OURS. HE IS A RESIDENT OF [facility]. HE PRESENTED TO THE ER DUE TO COMPLAINTS OF PERSISTENT COUGH, SHORTNESS OF BREATH, AND ELEVATED BLOOD PRESSURE. PATIENT HAD OUTPATIENT LABS DONE ON 05/19/21 WHICH REVEALED A WBC OF 16.7. HIS PMH INCLUDES THE FOLLOWING: ANEMIA, ANXIETY, DEPRESSION, GERD, AND SEIZURES. ON ARRIVAL TODAY, PATIENTS VITALS WERE 98.3-82-16-96%-164/65. LABS WERE OBTAINED. ABNORMAL LAB VALUES INCLUDE THE FOLLOWING: RBC 4.27, HGB 11.4, HCT 34.4, CARBON DIOXIDE 35.2, BUN 19, CREATININE 0.63, GLUCOSE 114, CALCIUM 8.4, ALK PHOS 121, ALBUMIN 3.0. URINALYSIS REVEALED: WBC 0-2, RBC 0-2, OCCULT BLOOD 1+, LEUKOCYTES NEGATIVE. BACTERIA NEGATIVE. COVID, INFLUENZA, AND RSV NEGATIVE. BLOOD CULTURES WERE SET UP. A CHEST XRAY WAS OBTAINED AND REVEALED: Suspected left base airspace opacity may represent pneumonia. Consider CT or follow-up radiograph for further evaluation. Elevated left hemidiaphragm. Air under the right hemidiaphragm is likely due to colon at the hepatic flexure. EKG REVEALED: SINUS TACHYCARDIA WITH HR 106. WHILE IN THE ER, HE WAS GIVEN FORTAZ 1G IV X 1, LEVAQUIN 500MG IV X 1. HE WAS ADMITTED TO THE HOSPITAL FOR FURTHER EVALUATION AND TREATMENT OF LEFT LOWER LOBE PNEUMONIA. HE WAS STARTED ON 1/2NS AT 75 ML/HR, LEVAQUIN 500MG IV DAILY, ROBITUSSIN DM 10ML PO QID, TUSSIONEX 5ML PO Q12H PRN, DUONEBS QID, AND HIS HOME MEDICATIONS WERE RESUMED. OTHERWISE, WE PLAN TO FOLLOW UP WITH AM LABS AND CHEST XRAY AND CONTINUE TO MONITOR. TIME SPENT ON CLINICAL ASSESSMENT, REVIEWING LABS AND IMAGING, DECISION MAKING, AND DOCUMENTATION GREATER THAN 75 MINUTES. - Past Medical History Past Medical History: Depression, Anxiety, Anemia, Seizures, GERD - Past Surgical History Surgical History: Ortho Surgery, Other - Family History Family Medical History: Hypertension - Social History Does patient currently use any type of tobacco product: No Have you used tobacco products in the last 12 months: No Type of Tobacco Use: None - Medications Home Medications: haloperidol [From Haldol] Allergy (Verified 01/13/21 18:01) ketorolac [From Toradol] Allergy (Verified 05/20/21 14:09) CONTINUE taking the following medications ipratropium-albuterol 3 ml INHALATION Q8H PRN 05/20/21 [History] polyethylene glycol 3350 [Miralax] 17 g PO DAILY 05/20/21 [History] - Review of Systems Constitutional: Weakness Eyes: No Symptoms Reported ENT: No Symptoms Reported Respiratory: Cough, Shortness of Breath, SOB with Excertion Cardiovascular: No Symptoms Reported Gastrointestinal: No Symptoms Reported Genitourinary: No Symptoms Reported Musculoskeletal: No Symptoms Reported Skin: No Symptoms Reported Neurological: No Symptoms Reported - Physical Exam Vital Signs: Temperature 98.4 F Pulse Rate [Right] 102 Pulse Rate 75 Respiratory Rate 24 Blood Pressure [Right Arm] 115/60 Blood Pressure 121/62 O2 Sat by Pulse Oximetry 92 Oriented: Normal Eyes: Normal Ear: Normal Nose: Normal Throat: Normal Respiratory: Diminished Throughout Cardiovascular: Normal : Normal Auscultation: Bowel Sounds: Normal Palpation: Normal Tenderness: Normal Skin: Normal Musculoskeletal: Normal Psychiatric: Normal Mood Description: Calm Affect: Normal Speech Pattern: Clear - Assessment/Plan (1) Pneumonia Qualifiers: Pneumonia type: due to unspecified organism Laterality: left Lung location: lower lobe of lung Qualified Code(s): J18.9 - Pneumonia, unspecified organism Status: Acute Plan: ADMIT, 1/2NS AT 75 ML/HR, LEVAQUIN 500MG IV DAILY, ROBITUSSIN DM 10ML PO QID, TUSSIONEX 5ML PO Q12H PRN, DUONEBS QID, AND HIS HOME MEDICATIONS WERE RESUMED. (2) SOB (shortness of breath) Status: Acute - Allergies Allergies/Adverse Reactions: Allergies Allergy/AdvReac Type Severity Reaction Status Date / Time haloperidol [From Haldol] Allergy Verified 01/13/21 18:01 ketorolac [From Toradol] Allergy Verified 05/20/21 14:09
[2021-05-21] MEDS: ZyPREXA TAB 5 MG PO SCH (22:44)
[2021-05-22] MEDS ORDERED: PHARMACY CONSULT LTC MEDICATIONS XX SCH (02:00)
[2021-05-22] MEDS: XANAX PO SCH (05:23)
--- NOTE | 2021-05-22 06:41 | RAD ---
HISTORYSOBSTUDYCHEST, 1 [id number]/16/2021TECHNIQUEAP view of the chestFINDINGSCardiac and mediastinal contours are within normal limits. Stable elevation of the left hemidiaphragm. Interval improvement in right upper lobe airspace opacity. Bilateral scattered interstitial opacities remain. No definite pleural effusion or pneumothorax.IMPRESSIONImproved appearance of right upper lobe airspace opacity consistent with improved pneumonia. Mild scattered interstitial opacities remain scratch.Electronically signed by: Noah Tong (May 22, 2021 06:39:57)
[2021-05-22 07:14] LABS: BASOPHILS % (AUTO) 0.2 % (0.2-1.0); EOSINOPHILS # (AUTO) 0.2 x10^3/uL (0.0-0.2); EOSINOPHILS % (AUTO) 3.4 % (0.9-2.9); HEMATOCRIT 30.7 % (42.0-54.0); HEMOGLOBIN 10.3 g/dL (13.5-18.0); LYMPHOCYTES # (AUTO) 1.3 X10^3/uL (1.3-2.9); LYMPHOCYTES % (AUTO) 19.8 % (21.0-51.0); MEAN CORPUSCULAR HEMOGLOBIN 26.5 pg (27.0-34.0); MEAN CORPUSCULAR HGB CONC 33.5 g/dL (33.0-35.0); MEAN PLATELET VOLUME 8.4 fL (7.4-11.0); MONOCYTES # (AUTO) 0.5 x10^3/uL (0.3-0.8); MONOCYTES % (AUTO) 7.7 % (0.0-13.0); NEUTROPHILS # (AUTO) 4.4 x10^3/uL (2.2-4.8); NEUTROPHILS % (AUTO) 68.9 % (42.0-75.0); PLATELET COUNT 214 X10^3/uL (150.0-450.0); RED BLOOD COUNT 3.89 X10^6/uL (4.7-6.0); RED CELL DISTRIBUTION WIDTH 15.2 % (11.6-16.5); WHITE BLOOD COUNT 6.4 X10^3/uL (3.6-10.0)
[2021-05-22 07:16] LABS: ALANINE AMINOTRANSFERASE 14 Units/L (12-78); ALBUMIN 2.6 g/dL (3.4-5.0); ALKALINE PHOSPHATASE 102 Units/L (46-116); ASPARTATE AMINO TRANSFERASE 15 Units/L (15-37); BLOOD UREA NITROGEN 6 mg/dL (7-18); CALCIUM 8.3 mg/dL (8.5-10.1); CARBON DIOXIDE 31.8 mmol/L (21-32); CHLORIDE 102 mmol/L (98-107); COR CA(FOR HYPOALB) 9.4 mg/dL (8.5-10.1); CREATININE 0.41 mg/dL (0.70-1.30); SODIUM 139 mmol/L (136-145); TOTAL PROTEIN 5.9 g/dL (6.4-8.2); eGFR NON BLACK RACES > 60 (>60)
[2021-05-22] MEDS: DUONEB 0.5 MG/3 MG (3 mL) NEB SCH (08:59)
[2021-05-22 11:59] VITALS: BP 124/69
[2021-06-18] MEDS ORDERED: VITAMIN B-12 INJ IM SCH (09:00)
[2021-06-19] MEDS ORDERED: CYANOCOBALAMIN 1000 MCG/ML IM SCH (09:00)
== END 2021-05-22 13:30 ==
LOC: OBS 13:47 → ER 13:47 → OBS 21:54
PROVIDERS: ADMIT Internal Medicine; ATTEND Internal Medicine
DX: I10 Essential (primary) hypertension; J18.8 Other pneumonia, unspecified organism; R06.02 Shortness of breath; Z20.822 Contact with and (suspected) exposure to COVID-19

== ENCOUNTER 2024-10-07 18:02 | Inpatient (IN) ==
--- NOTE | 2024-10-07 18:13 | EKG ---
Test Reason : hypoxia Blood Pressure : */* mmHG Vent. Rate : 107 BPM Atrial Rate : 107 BPM P-R Int : 192 ms QRS Dur : 90 ms QT Int : 340 ms P-R-T Axes : 59 105 55 degrees QTc Int : 453 ms Sinus tachycardia Rightward axis Nonspecific ST abnormality Abnormal ECG When compared with ECG of 26-JUN-2024 19:50, Criteria for Septal infarct are no longer present ST no longer depressed in Lateral leads Confirmed by Nomi Travis MD ([id number]) on 10/07/2024 6:42:04 PM Referred By: Confirmed By: Nomi Travis MD
[2024-10-07] MEDS: DUONEB 0.5 MG/3 MG (3 mL) NEB ONE (18:49)
[2024-10-07 18:51] LABS: BASOPHILS # (AUTO) 0.1 X10^3/uL (0.0-0.1); BASOPHILS % (AUTO) 0.7 % (0.2-1.0); EOSINOPHILS # (AUTO) 0.2 x10^3/uL (0.0-0.2); EOSINOPHILS % (AUTO) 2.1 % (0.9-2.9); HEMATOCRIT 34.7 % (42.0-54.0); HEMOGLOBIN 11.2 g/dL (13.5-18.0); LYMPHOCYTES # (AUTO) 2.1 X10^3/uL (1.3-2.9); LYMPHOCYTES % (AUTO) 28.5 % (21.0-51.0); MEAN CORPUSCULAR HEMOGLOBIN 25.7 pg (27.0-34.0); MEAN CORPUSCULAR HGB CONC 32.2 g/dL (33.0-35.0); MEAN CORPUSCULAR VOLUME 79.6 fL (80.0-100.0); MEAN PLATELET VOLUME 8.9 fL (7.4-11.0); MONOCYTES # (AUTO) 0.6 x10^3/uL (0.3-0.8); MONOCYTES % (AUTO) 8.1 % (0.0-13.0); NEUTROPHILS # (AUTO) 4.5 x10^3/uL (2.2-4.8); NEUTROPHILS % (AUTO) 60.6 % (42.0-75.0); PLATELET COUNT 223 X10^3/uL (150.0-450.0); RED BLOOD COUNT 4.37 X10^6/uL (4.7-6.0); RED CELL DISTRIBUTION WIDTH 16.4 % (11.6-16.5); WHITE BLOOD COUNT 7.4 X10^3/uL (3.6-10.0)
--- NOTE | 2024-10-07 18:55 | RAD ---
EXAM: FRONTAL VIEW CHEST X-RAY HISTORY: hypoxia; COMPARISON: 06/26/2024 FINDINGS: Marked elevation of the left hemidiaphragm is again noted with a prominent air-filled bubble that cou ld represent the stomach. Emphysematous changes are noted. There is discoid atelectasis in the right lower lung zone. No focal consolidation is seen. The heart size is magnified on this portable technique with imaging findings that could represent mod erate degree of pulmonary edema. The mediastinum is unremarkable. There is no evidence of pleural effusion or gross pneumothorax. The trachea is midline. IMPRESSION: 1. The heart size is magnified on this portable technique with imaging findings that could represent moderate degree of pulmonary edema. This could represent congestive heart failure. Correlation with patient BNP levels may be helpful. THIS IS AN ELECTRONICALLY VERIFIED FINAL REPORT 10/07/2024 6:47 PM - Electronically signed by Roberto Lei MD
[2024-10-07 19:04] LABS: ALANINE AMINOTRANSFERASE 21 Units/L (12-78); ALBUMIN 3.2 g/dL (3.4-5.0); ALKALINE PHOSPHATASE 100 Units/L (46-116); ASPARTATE AMINO TRANSFERASE 17 Units/L (15-37); BLOOD UREA NITROGEN 12 mg/dL (7-18); CALCIUM 8.6 mg/dL (8.5-10.1); CARBON DIOXIDE 35.7 mmol/L (21-32); CHLORIDE 99 mmol/L (98-107); COR CA(FOR HYPOALB) 9.2 mg/dL (8.5-10.1); COR NA(FOR HYPERGLY) 140 mmol/L (136-145); CREATININE 0.46 mg/dL (0.70-1.30); GLUCOSE 118 mg/dL (65-99); POTASSIUM 4.5 mmol/L (3.5-5.1); SODIUM 140 mmol/L (136-145); eGFR NON BLACK RACES > 60 (>60)
[2024-10-07 19:09] LABS: ABG BASE EXCESS 12.3 mmol/L (-2.0-2.0)
[2024-10-07 19:10] LABS: ABG ALLEN TEST POS; ABG HCO3 40.5 mmol/L (22-26)
[2024-10-07] MEDS ORDERED: NS 250 ML IV 25 ML IV PRN ×2 (19:54→23:13)
[2024-10-07] MEDS: ZOSYN VIAL 3.375 GRAMS 3.375 G in NS 100 ML IV 100 ML IV ONE (20:27)
[2024-10-07] MEDS: NS 1,000 ML IV 1,000 ML IV ONE (20:28)
[2024-10-07] MEDS: VANCOMYCIN IV *PREMIX 1 G/200 ML BAG 1 G/200 ML PIGGYBACK IV ONE (20:55)
--- NOTE | 2024-10-07 22:43 | DR.SOBA ---
HPI Time Seen Time Seen by Provider: 10/07/24 18:57 Primary Care Physician Primary Care Physician: Dr. Malone HPI Comment HPI Comment: Patient brought in from the assisted due to oxygen saturation having decreased to 87% on 2 L of O2 via nasal cannula. Patient does usually use O2 at 2 L nasal cannula at home. Patient arrived at 79% on room air. Patient denies shortness of breath or chest pain. Patient states she has had some nausea. No vomiting. No fever. Some dry cough. Complaints Chief Complaint:: [facility] staff reports that just prior to arrival pt was noted to have oxygen saturation of 87% on 2L O2. [facility] administered a breathing treatment and increased O2 sat only came up to 88%. On arrival to ED pt's O2 sat was 79% on RA. Pt denies any shortness of breath or pain. Pt states that he has had some nausea this evening but denies any vomiting. COVID-19 Coronavirus risk:travel/contact w/high risk person: No Has patient experienced Coronavirus symptoms: No Source History Provided: Patient and [facility] Mode of Arrival Mode of Arrival: Stretcher Timing Onset of Chief Complaint: 10/07/24 PMH PMH Past Medical History: Yes Past Medical History: Anemia, Anxiety, Depression, GERD and Schizophrenia Past Medical History Comment: Cerebral Palsy, dysphagia, intermittent explosive disorder Past Surgical History: Yes Surgical History: Ortho Surgery Family History History of Family Medical Conditions: Yes Family Medical History: Hypertension Social History Does patient currently use any type of tobacco product: No Have you used tobacco products in the last 12 months: No Type of Tobacco Use: None Does any household member use tobacco: No Alcohol Use: None Do you use any recreational Drugs:: No Lives With: Other Lives Where: [facility] Travel Risk Coronavirus risk:travel/contact w/high risk person: No Has patient experienced Coronavirus symptoms: No Infectious screening In the last 2 months have you had wt loss of >10#?: NO Have you had fever, night sweats or hemotysis?: No Have you traveled outside the country in the last 6 months?: No Isolation: Droplet ROS Review of Systems Constitutional: See HPI; negative Fever Eyes: No Symptoms Reported ENTM: No Symptoms Reported Respiratoy: See HPI; negative Short of Breath or Wheezing Cardiovascular: No Symptoms Reported Gastrointestinal/Abdominal: No Symptoms Reported Genitourinary: No Symptoms Reported Neurological: No Symptoms Reported Musculoskeletal: No Symptoms Reported Integumentary: No Symptoms Reported Hematologic/Lymphatic: No Symptoms Reported Endocrine: No Symptoms Reported Psychiatric: No Symptoms Reported All Other Systems: Reviewed and Negative PE Vital Signs Vitals: Vital Signs Temperature 98.0 F Temperature 99.7 F Pulse Rate 91 Pulse Rate 93 Pulse Rate 99 Pulse Rate 97 Pulse Rate 108 Pulse Rate 104 Pulse Rate 100 Pulse Rate 104 Pulse Rate 100 Pulse Rate 104 Pulse Rate 102 Pulse Rate 102 Pulse Rate 104 Pulse Rate 104 Pulse Rate 104 Pulse Rate 100 Pulse Rate 101 Pulse Rate 101 Pulse Rate 113 Respiratory Rate 63 Respiratory Rate 62 Respiratory Rate 85 Respiratory Rate 64 Respiratory Rate 60 Respiratory Rate 32 Respiratory Rate 47 Respiratory Rate 43 Respiratory Rate 73 Respiratory Rate 24 Blood Pressure 132/80 Blood Pressure 132/99 Blood Pressure 132/106 Blood Pressure 143/84 Blood Pressure 113/86 Blood Pressure 114/78 Blood Pressure 111/65 Blood Pressure 169/102 Blood Pressure 166/98 Blood Pressure 122/63 O2 Sat by Pulse Oximetry 98 O2 Sat by Pulse Oximetry 99 O2 Sat by Pulse Oximetry 97 O2 Sat by Pulse Oximetry 97 O2 Sat by Pulse Oximetry 96 O2 Sat by Pulse Oximetry 97 O2 Sat by Pulse Oximetry 98 O2 Sat by Pulse Oximetry 98 O2 Sat by Pulse Oximetry 98 O2 Sat by Pulse Oximetry 98 O2 Sat by Pulse Oximetry 99 O2 Sat by Pulse Oximetry 93 O2 Sat by Pulse Oximetry 95 O2 Sat by Pulse Oximetry 97 O2 Sat by Pulse Oximetry 96 O2 Sat by Pulse Oximetry 81 O2 Sat by Pulse Oximetry 82 O2 Sat by Pulse Oximetry 87 O2 Sat by Pulse Oximetry 84 General Limitations: No Limitations General Appearance: Alert and In No Apparent Distress Head Head Exam: Normal Inspection Eyes Eye exam: Normal Appearance ENT ENT Exam: Other (Nasal turbinate erythema with clear discharge) Neck Neck Exam: Normal Inspection Chest Chest Inspection: Normal Inspection Respiratory Respiratory Exam: Respiratory Distress and Other (Coarse bilaterally with mildly diminished breath sounds on the bases bilaterally) Cardiovascular Cardiovascular Exam: Regular Rate and Normal Rhythm Abdominal Exam Abdominal Exam: Normal Inspection, Normal Bowel Sounds and Soft Extremities Extremities Exam: Normal Inspection Back Back Exam: Normal Inspection Neurologic Neurological Exam: Alert and Oriented X3 Psychiatric Psychiatric Exam: Normal Affect and Normal Mood Skin Skin Exam: Warm, Dry, Intact and Normal Color COURSE Treatment Treatment: Patient's O2 improved significantly on 2 L via nasal cannula. Improved with IV hydration and antibiotic. Found to be septic with elevated lactic acid. Suspect coinfection with pneumonia. Consultation Called: 22:47 Consultation Comments: Discussed case with Dr. Reed and she is agreeable to admission. ROR Labs Reviewed 10/07/24 18:15 10/07/24 18:15 Laboratory: WBC 7.4 X10^3/uL (3.6-10.0) 10/07/24 18:15 RBC 4.37 X10^6/uL (4.7-6.0) L 10/07/24 18:15 Hgb 11.2 g/dL (13.5-18.0) L 10/07/24 18:15 Hct 34.7 % (42.0-54.0) L 10/07/24 18:15 MCV 79.6 fL (80.0-100.0) L 10/07/24 18:15 MCH 25.7 pg (27.0-34.0) L 10/07/24 18:15 MCHC 32.2 g/dL (33.0-35.0) L 10/07/24 18:15 RDW 16.4 % (11.6-16.5) 10/07/24 18:15 Plt Count 223 X10^3/uL (150.0-450.0) 10/07/24 18:15 MPV 8.9 fL (7.4-11.0) 10/07/24 18:15 Neut % (Auto) 60.6 % (42.0-75.0) 10/07/24 18:15 Lymph % (Auto) 28.5 % (21.0-51.0) 10/07/24 18:15 [place] % (Auto) 8.1 % (0.0-13.0) 10/07/24 18:15 Eos % (Auto) 2.1 % (0.9-2.9) 10/07/24 18:15 Baso % (Auto) 0.7 % (0.2-1.0) 10/07/24 18:15 Neut # (Auto) 4.5 x10^3/uL (2.2-4.8) 10/07/24 18:15 Lymph # (Auto) 2.1 X10^3/uL (1.3-2.9) 10/07/24 18:15 [place] # (Auto) 0.6 x10^3/uL (0.3-0.8) 10/07/24 18:15 Eos # (Auto) 0.2 x10^3/uL (0.0-0.2) 10/07/24 18:15 Baso # (Auto) 0.1 X10^3/uL (0.0-0.1) 10/07/24 18:15 Absolute Nucleated RBC 0.0 /100WBC 10/07/24 18:15 Sample Site Lr 10/07/24 18:03 ABG pH 7.370 (7.35-7.45) 10/07/24 18:03 ABG pCO2 70.0 mmHg (35.0-45.0) H* 10/07/24 18:03 ABG pO2 67.0 mmHg (80.0-100.0) L 10/07/24 18:03 ABG HCO3 40.5 mmol/L (22-26) H* 10/07/24 18:03 ABG O2 Saturation 92.0 % (90-100) 10/07/24 18:03 ABG Base Excess 12.3 mmol/L (-2.0-2.0) H 10/07/24 18:03 Rylan Test Pos 10/07/24 18:03 A-a Gradient 74.0 mmHg 10/07/24 18:03 FiO2 32.0 10/07/24 18:03 Blood Gas Comments [place] [facility] 10/07/24 18:03 Sodium 140 mmol/L (136-145) 10/07/24 18:15 Corrected Sodium 140 mmol/L (136-145) 10/07/24 18:15 Potassium 4.5 mmol/L (3.5-5.1) 10/07/24 18:15 Chloride 99 mmol/L (98-107) 10/07/24 18:15 Carbon Dioxide 35.7 mmol/L (21-32) H 10/07/24 18:15 BUN 12 mg/dL (7-18) 10/07/24 18:15 Creatinine 0.46 mg/dL (0.70-1.30) L 10/07/24 18:15 Est GFR (MDRD) Af Amer > 60 (>60) 10/07/24 18:15 Est GFR (MDRD) Non-Af > 60 (>60) 10/07/24 18:15 Glucose 118 mg/dL (65-99) H 10/07/24 18:15 Lactic Acid 1.6 mmol/L (0.4-2.0) 10/07/24 20:15 Calcium 8.6 mg/dL (8.5-10.1) 10/07/24 18:15 Corrected Calcium 9.2 mg/dL (8.5-10.1) 10/07/24 18:15 Total Bilirubin 0.30 mg/dL (0.2-1.0) 10/07/24 18:15 AST 17 Units/L (15-37) 10/07/24 18:15 ALT 21 Units/L (12-78) 10/07/24 18:15 Alkaline Phosphatase 100 Units/L (46-116) 10/07/24 18:15 Troponin I High Sens 9.0 ng/L (4.0-60.0) 10/07/24 20:15 B-Natriuretic Peptide 11.6 pg/mL (0-79) 10/07/24 18:15 Total Protein 7.0 g/dL (6.4-8.2) 10/07/24 18:15 Albumin 3.2 g/dL (3.4-5.0) L 10/07/24 18:15 Globulin 3.8 g/dL (2.5-4.5) 10/07/24 18:15 Albumin/Globulin Ratio 0.8 Ratio (1.1-2.1) L 10/07/24 18:15 SARS-CoV-2 (PCR) Negative (NEGATIVE) 10/07/24 18:19 Influenza Type A (PCR) Positive (NEGATIVE) A 10/07/24 18:19 Influenza Type B (PCR) Negative (NEGATIVE) 10/07/24 18:19 RSV (PCR) Negative (NEGATIVE) 10/07/24 18:19 Opioid Opioid Risk Tool Age (Say box if 16-45): No History of Preadolescent Sexual Abuse: No Total: 0 Total Score Risk Category: Low Risk Copyright: Robert FIGUEREDO predicting aberrant behaviors Discharge Plan Diagnosis Discharge Problem: Sepsis, Hypoxia, Cerebral palsy, Influenza A Discharge Plan Patient Disposition: 09 ADMITTED INPATIENT Condition: Stable Prescriptions: No Action olanzapine 5 mg tablet 5 mg PO QAM olanzapine 10 mg tablet 10 mg PO HS alprazolam 0.5 mg tablet 0.5 mg PO TID tamsulosin 0.4 mg capsule 0.4 mg PO DAILY docusate sodium [Colace] 100 mg Capsule 100 mg PO DAILY folic acid 1 mg Tablet 1 mg PO DAILY bupropion HCl 150 mg tablet extended release 24 hr 150 mg PO DAILY Calcium 600 + D(3) 600 mg calcium- 200 unit Capsule 1 cap PO BID cyanocobalamin (vitamin B-12) 1,000 mcg/mL Kit 1,000 mcg IM QMONTH Patient Comments: GIVE ON 14 OF EACH MONTH Rx Instructions: Inject 1 cc IM QD starting on the 14 and ending on the 14 Qmonth fluoxetine 40 mg capsule 40 mg PO BID polyethylene glycol 3350 [Miralax] 17 gram Powder In Packet 17 g PO DAILY omeprazole 40 mg capsule,delayed release(DR/EC) 40 mg PO QDAY trazodone 100 mg tablet 100 mg PO QPM levalbuterol HCl [Xopenex] 1.25 mg/3 mL Solution For Nebulization 1.25 mg INHALATION Q6H PRN Multi For Her 50 Plus 400-80 mcg Capsule 1 cap PO DAILY PreserVision AREDS 2 Plus MV 200 mcg-15 mcg- 5 mg-1 mg Capsule 1 cap PO DAILY Debrox 6.5 % Drops 5 drp OTIC (EAR) BID Rx Instructions: left ear fluocinonide 0.05 % Solution 1 applic TOPICAL DAILY melatonin 2.5 mg Tablet,Chewable 2.5 mg PO HS Health Concerns: Post Hospitalization: new medications and changes needed to prevent readmission or further decline. Pt educated and given instructions on all concerns. Plan of Treatment: Continue with present treatment and follow up plan. Pt is to keep follow up appointment as instructed and take medications as ordered. Orders to Discharge Patient Discharge Orders: Transfer (Routine); Ordered 10/07/24 Ordered By: Brian Kamara Follow ups/Referrals Follow ups/Referrals: Kumar Malone [Primary Care Provider] - 3 days Instructions Stand Alone Forms: Find Help Web Site, Post Hospital Follow Up Care
[2024-10-07] MEDS ORDERED: PHARMACY CONSULT - VANCOMYCIN XX SCH (23:13)
[2024-10-07] MEDS ORDERED: TUSSIONEX PENNKINETIC SUSP PO PRN (23:13)
[2024-10-07] MEDS: NS 1,000 ML IV 1,000 ML IV SCH (23:39)
[2024-10-08] MEDS: XOPENEX 1.25 MG/3 ML NEBULE NEB SCH (00:15)
[2024-10-08 00:41] VITALS: BMI 30.2
[2024-10-08] MEDS ORDERED: PHARMACY CONSULT LTC MEDICATIONS XX SCH ×2 (01:00→09:00)
[2024-10-08] MEDS: ZOSYN VIAL 3.375 GRAMS 3.375 G in NS 100 ML IV 100 ML IV SCH (05:51)
[2024-10-08 06:50] LABS: BASOPHILS % (AUTO) 0.2 % (0.2-1.0); EOSINOPHILS % (AUTO) 0.1 % (0.9-2.9); HEMATOCRIT 31.7 % (42.0-54.0); HEMOGLOBIN 10.3 g/dL (13.5-18.0); LYMPHOCYTES # (AUTO) 0.8 X10^3/uL (1.3-2.9); LYMPHOCYTES % (AUTO) 5.4 % (21.0-51.0); MEAN CORPUSCULAR HEMOGLOBIN 25.7 pg (27.0-34.0); MEAN CORPUSCULAR HGB CONC 32.5 g/dL (33.0-35.0); MEAN PLATELET VOLUME 9.2 fL (7.4-11.0); MONOCYTES % (AUTO) 6.9 % (0.0-13.0); NEUTROPHILS # (AUTO) 12.6 x10^3/uL (2.2-4.8); NEUTROPHILS % (AUTO) 87.4 % (42.0-75.0); PLATELET COUNT 207 X10^3/uL (150.0-450.0); RED BLOOD COUNT 4.02 X10^6/uL (4.7-6.0); RED CELL DISTRIBUTION WIDTH 16.4 % (11.6-16.5); WHITE BLOOD COUNT 14.4 X10^3/uL (3.6-10.0)
--- NOTE | 2024-10-08 07:07 | RAD ---
EXAM:CHESTHISTORY:PNEUMONIA, FLU ; GERD, SCHIZOPHRENIA, CEREBRAL PALSY, DYSPHAGIA SX: ORTHOCOMPARISON:October 07, 2024.TECHNIQUE:Frontal view of the chest was submitted for interpretation.FINDINGS:The cardiomediastinal silhouette stable in size. Lungs show low volumes. Elevation left hemidiaphragm.IMPRESSION:Stable appearance of the chest. Low lung volumes with elevated left hemidiaphragm.THIS IS AN ELECTRONICALLY VERIFIED FINAL REPORT10/08/2024 7:03 AM - Electronically signed by Juan Awan MD
[2024-10-08 07:27] LABS: ALANINE AMINOTRANSFERASE 20 Units/L (12-78); ALBUMIN 3.2 g/dL (3.4-5.0); ALKALINE PHOSPHATASE 96 Units/L (46-116); ASPARTATE AMINO TRANSFERASE 24 Units/L (15-37); BLOOD UREA NITROGEN 13 mg/dL (7-18); CALCIUM 8.9 mg/dL (8.5-10.1); CARBON DIOXIDE 30.8 mmol/L (21-32); CHLORIDE 99 mmol/L (98-107); COR CA(FOR HYPOALB) 9.5 mg/dL (8.5-10.1); COR NA(FOR HYPERGLY) 137 mmol/L (136-145); CREATININE 0.35 mg/dL (0.70-1.30); GLUCOSE 112 mg/dL (65-99); POTASSIUM 4.3 mmol/L (3.5-5.1); SODIUM 137 mmol/L (136-145); TOTAL PROTEIN 6.7 g/dL (6.4-8.2); eGFR NON BLACK RACES > 60 (>60)
[2024-10-08] MEDS: PULMICORT NEB TX 0.5 MG NEB SCH (08:58)
[2024-10-08] MEDS ORDERED: [UNRECOGNIZED DRUG - OTHER] PO SCH (09:00)
[2024-10-08] MEDS ORDERED: VANCOMYCIN HCL 1 G in D5W 250 ML IV 250 ML IV SCH (09:00)
[2024-10-08] MEDS ORDERED: [UNRECOGNIZED DRUG - MIXTURE] PO SCH (09:00)
[2024-10-08] MEDS: FLOMAX PO SCH (09:14)
[2024-10-08] MEDS: PriLOSEC PO SCH (09:14)
[2024-10-08] MEDS: ROBITUSSIN DM PO SCH (09:14)
[2024-10-08] MEDS: WELLBUTRIN XL 150 MG (DAILY) PO SCH (09:15)
[2024-10-08] MEDS: FOLIC ACID TAB 1 MG PO SCH (09:15)
[2024-10-08] MEDS: ZyPREXA TAB 5 MG PO SCH ×2 (09:15→21:43)
[2024-10-08] MEDS: COLACE CAP 100 MG PO SCH (09:15)
[2024-10-08] MEDS: PROzac PO SCH (09:15)
[2024-10-08] MEDS: TAMIFLU PO SCH (09:15)
[2024-10-08] MEDS: VISBIOME PROBIOTIC CAP 112.5 B or equivalent PO SCH (09:15)
[2024-10-08] MEDS: CITRACAL + VITAMIN D PO SCH (09:15)
[2024-10-08] MEDS ORDERED: TYLENOL 500 MG TAB EXTRA STRENGTH PO PRN (10:36)
--- NOTE | 2024-10-08 10:36 | DR.H&P ---
H&P History & Physical for Day of: H&P Date: 10/08/24 Chief Complaint Chief Complaint: sob History of Present Illness History of Present Illness: Mr Ohara is a 69y/o with a PMH of cerebral palsy, GALO, MDD, Schizophrenia who is a resident of [place] was brought to the ER due to worsening dyspnea and low O2 sats. Er work up showed Flu +, CXR did not show acute changes. He was started on IV antibiotics and fluids. He is currently on 2L NC. He did have a temp of 100.6 earlier, now 99.6. Labs/imaging reviewed: -WBC 14.4 Hgb 10.3 K 4.3 BUN/Cr 13/0.35 -CXR reviewed -Flu + Plan: Wean O2 as tolerated. Continue Zosyn, DC Vancomycin. Add Tamiflu. Tylenol prn. Continue nebs and IS. Continue hydration, replace electrolytes as needed. Resume home medications. Monitor AM labs/imaging. Past Medical History Past Medical History: Anemia, Anxiety, Depression, GERD and Schizophrenia Past Surgical History Surgical History: Ortho Surgery Family History Family Medical History: Hypertension Social History Does patient currently use any type of tobacco product: No Have you used tobacco products in the last 12 months: No Type of Tobacco Use: None Does any household member use tobacco: No Alcohol Use: None Drug Use: None Medications Home Medications: Home Medications Medication Instructions Recorded Confirmed Type alprazolam 0.5 mg tablet 0.5 mg PO TID 05/30/20 10/07/24 History bupropion HCl 150 mg 24 hr tablet, 150 mg PO DAILY 05/30/20 10/07/24 History extended release calcium 600 mg (as 1 cap PO BID 05/30/20 10/07/24 History carbonate)-vitamin D3 5 mcg (200 unit) capsule (Calcium 600 + D(3)) cyanocobalamin (vitamin B-12) 1,000 mcg IM QMONTH 05/30/20 10/07/24 History 1,000 mcg/mL injection kit docusate sodium 100 mg capsule 100 mg PO DAILY 05/30/20 10/07/24 History (Colace) folic acid 1 mg tablet 1 mg PO DAILY 05/30/20 10/07/24 History olanzapine 10 mg tablet 10 mg PO HS 05/30/20 10/07/24 History olanzapine 5 mg tablet 5 mg PO QAM 05/30/20 10/07/24 History tamsulosin 0.4 mg capsule 0.4 mg PO DAILY 05/30/20 10/07/24 History fluoxetine 40 mg capsule 40 mg PO BID 05/31/20 10/07/24 History polyethylene glycol 3350 17 gram 17 g PO DAILY 05/20/21 10/07/24 History oral powder packet (Miralax) levalbuterol HCl 1.25 mg/3 mL 1.25 mg inhalation Q6H PRN 06/26/24 10/07/24 History solution for nebulization qlevtmulquzt-wxrumioi-nfrjc acid 1 cap PO DAILY 06/26/24 10/07/24 History 400 mcg-vitamin K 80 mcg capsule (Multi For Her 50 Plus) mv-mn-folic 200 mcg-vit K 15 1 cap PO DAILY 06/26/24 10/07/24 History mcg-lutein 5 mg-zeaxanthin 1 mg capsule (PreserVision AREDS 2 Plus Multivit) omeprazole 40 mg capsule,delayed 40 mg PO QDAY 06/26/24 10/07/24 History release trazodone 100 mg tablet 100 mg PO QPM 06/26/24 10/07/24 History carbamide peroxide 6.5 % ear drops 5 drp otic (ear) BID 10/07/24 10/07/24 History (Debrox) fluocinonide 0.05 % topical 1 applic topical DAILY 10/07/24 10/07/24 History solution melatonin 2.5 mg chewable tablet 2.5 mg PO HS 10/07/24 10/07/24 History Allergies Allergies Allergy/AdvReac Type Severity Reaction Status Date / Time haloperidol [From Haldol] Allergy Verified 06/26/24 19:57 ketorolac [From Toradol] Allergy Verified 06/26/24 19:57 Labs 10/08/24 05:50 10/08/24 05:50 Labs: 10/08/24 00:00 Sputum - Expectorated Sputum - Final Laboratory WBC 14.4 X10^3/uL (3.6-10.0) H 10/08/24 05:50 RBC 4.02 X10^6/uL (4.7-6.0) L 10/08/24 05:50 Hgb 10.3 g/dL (13.5-18.0) L 10/08/24 05:50 Hct 31.7 % (42.0-54.0) L 10/08/24 05:50 MCV 79.0 fL (80.0-100.0) L 10/08/24 05:50 MCH 25.7 pg (27.0-34.0) L 10/08/24 05:50 MCHC 32.5 g/dL (33.0-35.0) L 10/08/24 05:50 RDW 16.4 % (11.6-16.5) 10/08/24 05:50 Plt Count 207 X10^3/uL (150.0-450.0) 10/08/24 05:50 MPV 9.2 fL (7.4-11.0) 10/08/24 05:50 Neut % (Auto) 87.4 % (42.0-75.0) H 10/08/24 05:50 Lymph % (Auto) 5.4 % (21.0-51.0) L 10/08/24 05:50 [place] % (Auto) 6.9 % (0.0-13.0) 10/08/24 05:50 Eos % (Auto) 0.1 % (0.9-2.9) L 10/08/24 05:50 Baso % (Auto) 0.2 % (0.2-1.0) 10/08/24 05:50 Neut # (Auto) 12.6 x10^3/uL (2.2-4.8) H 10/08/24 05:50 Lymph # (Auto) 0.8 X10^3/uL (1.3-2.9) L 10/08/24 05:50 [place] # (Auto) 1.0 x10^3/uL (0.3-0.8) H 10/08/24 05:50 Eos # (Auto) 0.0 x10^3/uL (0.0-0.2) 10/08/24 05:50 Baso # (Auto) 0.0 X10^3/uL (0.0-0.1) 10/08/24 05:50 Absolute Nucleated RBC 0.1 /100WBC 10/08/24 05:50 Sample Site Lr 10/07/24 18:03 ABG pH 7.370 (7.35-7.45) 10/07/24 18:03 ABG pCO2 70.0 mmHg (35.0-45.0) H* 10/07/24 18:03 ABG pO2 67.0 mmHg (80.0-100.0) L 10/07/24 18:03 ABG HCO3 40.5 mmol/L (22-26) H* 10/07/24 18:03 ABG O2 Saturation 92.0 % (90-100) 10/07/24 18:03 ABG Base Excess 12.3 mmol/L (-2.0-2.0) H 10/07/24 18:03 Rylan Test Pos 10/07/24 18:03 A-a Gradient 74.0 mmHg 10/07/24 18:03 FiO2 32.0 10/07/24 18:03 Blood Gas Comments [place] well sw 10/07/24 18:03 Sodium 137 mmol/L (136-145) 10/08/24 05:50 Corrected Sodium 137 mmol/L (136-145) 10/08/24 05:50 Potassium 4.3 mmol/L (3.5-5.1) 10/08/24 05:50 Chloride 99 mmol/L (98-107) 10/08/24 05:50 Carbon Dioxide 30.8 mmol/L (21-32) 10/08/24 05:50 BUN 13 mg/dL (7-18) 10/08/24 05:50 Creatinine 0.35 mg/dL (0.70-1.30) L 10/08/24 05:50 Est GFR (MDRD) Af Amer > 60 (>60) 10/08/24 05:50 Est GFR (MDRD) Non-Af > 60 (>60) 10/08/24 05:50 Glucose 112 mg/dL (65-99) H 10/08/24 05:50 Lactic Acid 1.6 mmol/L (0.4-2.0) 10/07/24 20:15 Calcium 8.9 mg/dL (8.5-10.1) 10/08/24 05:50 Corrected Calcium 9.5 mg/dL (8.5-10.1) 10/08/24 05:50 Total Bilirubin 0.50 mg/dL (0.2-1.0) 10/08/24 05:50 AST 24 Units/L (15-37) 10/08/24 05:50 ALT 20 Units/L (12-78) 10/08/24 05:50 Alkaline Phosphatase 96 Units/L (46-116) 10/08/24 05:50 Troponin I High Sens 9.0 ng/L (4.0-60.0) 10/07/24 20:15 B-Natriuretic Peptide 11.6 pg/mL (0-79) 10/07/24 18:15 Total Protein 6.7 g/dL (6.4-8.2) 10/08/24 05:50 Albumin 3.2 g/dL (3.4-5.0) L 10/08/24 05:50 Globulin 3.5 g/dL (2.5-4.5) 10/08/24 05:50 Albumin/Globulin Ratio 0.9 Ratio (1.1-2.1) L 10/08/24 05:50 SARS-CoV-2 (PCR) Negative (NEGATIVE) 10/07/24 18:19 Influenza Type A (PCR) Positive (NEGATIVE) A 10/07/24 18:19 Influenza Type B (PCR) Negative (NEGATIVE) 10/07/24 18:19 RSV (PCR) Negative (NEGATIVE) 10/07/24 18:19 Review of Systems Constitutional: Weakness and Malaise Eyes: No Symptoms Reported Respiratory: Cough and Shortness of Breath Cardiovascular: No Symptoms Reported Gastrointestinal: No Symptoms Reported Genitourinary: No Symptoms Reported Musculoskeletal: No Symptoms Reported Skin: No Symptoms Reported Neurological: No Symptoms Reported Physical Exam Vital Signs: Vital Signs Temperature 99.6 F Temperature 100.6 F Pulse Rate [Left Radial] 105 Respiratory Rate 21 Blood Pressure [Left Arm] 127/80 O2 Sat by Pulse Oximetry 95 Nose: Normal Throat: Dry Respiratory: Diminished Throughout Cardiovascular: Normal and Tachycardia Auscultation: Bowel Sounds: Normal Palpation: Normal Tenderness: Normal Skin: Decreased [place] Musculoskeletal: Motor Deficit (contracted arms and legs ) Psychiatric: Anxiety Affect: Normal Speech Pattern: Delayed Assessment/Plan (1) Acute respiratory failure: Status: Acute (2) Influenza A: Status: Acute (3) Pneumonia: Qualifiers: Laterality: left Lung location: lower lobe of lung Pneumonia type: due to unspecified organism Qualified Code(s): J18.9 - Pneumonia, unspecified organism Status: Acute (4) Infantile cerebral palsy: Status: Chronic (5) Depression: Status: Chronic Review H&P Reviewed: Yes Patient was examined?: Yes
[2024-10-08] MEDS: ALPRAZOLAM ODT PO SCH (14:01)
[2024-10-08] MEDS: LOVENOX INJ 40 MG SYR SC SCH (17:52)
[2024-10-08] MEDS: DESYREL PO SCH (21:41)
[2024-10-09 06:13] LABS: BASOPHILS % (AUTO) 0.1 % (0.2-1.0); EOSINOPHILS % (AUTO) 0.5 % (0.9-2.9); HEMATOCRIT 27.8 % (42.0-54.0); HEMOGLOBIN 9.3 g/dL (13.5-18.0); LYMPHOCYTES # (AUTO) 1.5 X10^3/uL (1.3-2.9); LYMPHOCYTES % (AUTO) 18.9 % (21.0-51.0); MEAN CORPUSCULAR HEMOGLOBIN 26.4 pg (27.0-34.0); MEAN CORPUSCULAR HGB CONC 33.5 g/dL (33.0-35.0); MEAN CORPUSCULAR VOLUME 78.7 fL (80.0-100.0); MEAN PLATELET VOLUME 8.5 fL (7.4-11.0); MONOCYTES # (AUTO) 0.8 x10^3/uL (0.3-0.8); MONOCYTES % (AUTO) 9.8 % (0.0-13.0); NEUTROPHILS # (AUTO) 5.6 x10^3/uL (2.2-4.8); NEUTROPHILS % (AUTO) 70.7 % (42.0-75.0); PLATELET COUNT 142 X10^3/uL (150.0-450.0); RED BLOOD COUNT 3.53 X10^6/uL (4.7-6.0); RED CELL DISTRIBUTION WIDTH 16.2 % (11.6-16.5)
[2024-10-09 06:28] LABS: ALANINE AMINOTRANSFERASE 23 Units/L (12-78); ALBUMIN 2.5 g/dL (3.4-5.0); ALKALINE PHOSPHATASE 76 Units/L (46-116); ASPARTATE AMINO TRANSFERASE 38 Units/L (15-37); BLOOD UREA NITROGEN 7 mg/dL (7-18); CALCIUM 7.8 mg/dL (8.5-10.1); CARBON DIOXIDE 30.4 mmol/L (21-32); CHLORIDE 99 mmol/L (98-107); CREATININE 0.31 mg/dL (0.70-1.30); GLUCOSE 105 mg/dL (65-99); MAGNESIUM 1.8 mg/dL (2.0-2.9); POTASSIUM 3.2 mmol/L (3.5-5.1); SODIUM 134 mmol/L (136-145); TOTAL PROTEIN 5.4 g/dL (6.4-8.2); eGFR NON BLACK RACES > 60 (>60)
[2024-10-09] MEDS: MELATONIN PO SCH (06:29)
[2024-10-09] MEDS ORDERED: CONSULT PHARMACY - POTASSIUM & MAGNESIUM XX SCH (07:00)
[2024-10-09] MEDS: D5W 250 ML IV 250 ML IV ONE (07:38)
[2024-10-09] MEDS: VANCOMYCIN HCL ONE (07:38)
[2024-10-09] MEDS: XOPENEX 1.25 MG/3 ML NEBULE NEB ONE (07:39)
[2024-10-09] MEDS: PULMICORT NEB TX 0.5 MG NEB ONE (07:39)
[2024-10-09] MEDS ORDERED: PHARMACY COMMENT IV SCH (08:00)
[2024-10-09] MEDS ORDERED: MAG-OX TAB PO SCH (09:00)
[2024-10-09] MEDS ORDERED: K-DUR TAB 20 MEQ PO SCH (09:00)
[2024-10-09] MEDS: POTASSIUM CHLORIDE IV ONE (09:03)
[2024-10-09] MEDS: MAGNESIUM SULFATE IV ONE (09:03)
[2024-10-09] MEDS: [UNRECOGNIZED DRUG - OTHER] IV ONE (09:03)
[2024-10-09 09:48] VITALS: RESP 20
[2024-10-09 12:06] VITALS: BP 101/66; PULSE 74; TEMP 97.5; O2SAT 98
== END 2024-10-09 14:38 | disposition home or self-care (01) | DRG 177 ==
LOC: ER 18:02 → MED/SURG 22:56
PROVIDERS: ADMIT Internal Medicine; ATTEND Internal Medicine
DX: Z99.81 Dependence on supplemental oxygen; M62.89 Other specified disorders of muscle; J15.212 Pneumonia due to Methicillin resistant Staphylococcus aureus; G80.9 Cerebral palsy, unspecified; J10.08 Influenza due to other identified influenza virus with other specified pneumonia; R00.0 Tachycardia, unspecified; Z03.818 Encounter for observation for suspected exposure to other biological agents ruled out; Z29.89 Encounter for other specified prophylactic measures; E83.42 Hypomagnesemia; J15.5 Pneumonia due to Escherichia coli; R94.31 Abnormal electrocardiogram [ECG] [EKG]; F32.89 Other specified depressive episodes; K21.9 Gastro-esophageal reflux disease without esophagitis; J96.00 Acute respiratory failure, unspecified whether with hypoxia or hypercapnia